=== PATIENT | male | born 1940 | race Two or more races ===

== ENCOUNTER → 2024-07-24 | Outpatient (CLI) | payer MEDICARE, MEDICAID, SELFPAY ==
[2024-07-24 11:08] LABS: Prostate Specific Antigen < 0.10 ng/mL (0-4.00)
== END | disposition home or self-care (01) ==
LOC: COPL 09:01
PROVIDERS: PCP Family Medicine; Referring Provider Urology; Visit Provider Urology
DX: C61 Malignant neoplasm of prostate (principal)
CPT/HCPCS: 36415; 84153

== ENCOUNTER 2024-07-28 10:09 | Day surgery (SDC) | payer MEDICARE, MEDICAID, SELFPAY ==
[2024-07-27 08:00] VITALS: BMI 27.2
[2024-07-27 08:54] LABS: Basophils % (Auto) 1 % (0-2.5); Eosinophils # (Auto) 0.2 Thou/mm3 (0.0-0.5); Eosinophils % (Auto) 4 % (0-10); Hematocrit 35.9 % (41.0-53.0); Hemoglobin 12.1 g/dL (13.5-16.0); Immature Granulocytes % (Auto) 0 % (0-0); Immature Granulocytes Auto 0.02 Thou/mm3 (0.00-0.00); Lymphocytes # (Auto) 1.3 Thou/mm3 (1.0-4.8); Lymphocytes % (Auto) 22 % (10-50); Mean Corpuscular HGB Conc 33.7 g/dl (31.0-37.0); Mean Corpuscular Hemoglobin 32.9 pg (25.0-35.0); Mean Corpuscular Volume 98 fL (80-100); Monocytes # (Auto) 0.4 Thou/mm3 (0.0-0.8); Monocytes % (Auto) 6 % (0-12); Neutrophils # (Auto) 3.8 Thou/mm3 (1.8-7.7); Neutrophils % (Auto) 67 % (37-80); Nucleated Red Blood Cell % 0 /100 WBC (0); Platelet Count 220 Thou/mm3 (140-440); Red Blood Count 3.68 Miln/mm3 (4.50-5.90); White Blood Count 5.7 Thou/mm3 (3.8-10.6)
[2024-07-27 09:11] LABS: Alanine Aminotransferase 14 U/L (10-49); Albumin, Serum 4.5 gm/dL (3.4-4.8); Albumin/Globulin Ratio 1.7 (1.2-2.2); Alkaline Phosphatase 93 U/L (46-116); Anion Gap 6 (7-16); Aspartate Amino Transferase 15 U/L (0-34); BUN/Creatinine Ratio 15 Ratio (12-20); Bilirubin,Total 0.5 mg/dL (0.3-1.2); Blood Urea Nitrogen 17 mg/dL (9-23); Calcium 9.8 mg/dL (8.3-10.6); Calcium (Corrected) 9.8 mg/dL (8.5-10.1); Carbon Dioxide 28.2 mMol/L (20.0-31.0); Chloride 104 mMol/L (98-107); Creatinine (Component) 1.1 mg/dL (0.6-1.3); Estimated Creatinine Clearance 47.9 mL/min (>60); Globulin 2.6 gm/dL (2.3-3.5); Glucose 111 mg/dL (74-106); Osmolality,Calculated 278 (275-295); Potassium 4.4 mMol/L (3.4-5.1); Sodium 138 mMol/L (136-145); Total Protein 7.1 gm/dL (5.7-8.2); eGFR > 60 See Note
[2024-07-27 09:22] LABS: Prothrombin Time 10.7 Seconds (9.0-12.2)
--- NOTE | 2024-07-27 13:30 | SUR.PREOP ---
Cardiac history and records reviewed with Dr Ratliff.
--- NOTE | 2024-07-27 15:08 | SUR.PREOP ---
Pt notified to come in at 1030 tomorrow for surgery.
[2024-07-28] VITALS (8 sets, daily range): BP systolic 120–165; BP diastolic 49–90; PULSE 60–86; RESP 12–14; TEMP 36.2–36.6; O2SAT 97–100; BMI 26.6
[2024-07-28] MEDS: RINGERS LACTATED 1000 ML 1,000 ML 20 ML IV (10:43)
--- NOTE | 2024-07-28 10:53 | CHAP ---
Patient expressed gratitude for prayer before their procedure.
--- NOTE | 2024-07-28 13:37 | SUR.PHASEI ---
1337: Pt. AAOx4, vitals stable, breathing unlabored, no complaint of pain or nausea, dressing to ABD CDI, no active bleed noted, report received from Clinton GOOD and Rhys ALANIZ.
--- NOTE | 2024-07-28 13:41 | ESOP_ITS ---
Date of Procedure 07/28/24 Pre Op Diagnosis Incarcerated incisional hernia Post Op Diagnosis Incarcerated incisional hernia Procedure Laparoscopic assisted repair of incarcerated incisional hernia with mesh Findings Patient was noted to have incarcerated epigastric incisional hernia with incarcerated omentum and falciform ligament Procedure Description Patient brought into the operating room in supine position. After administration of general orotracheal anesthesia, patient's abdomen prepped and draped in standard surgical manner. A 5 mm incision was made in left upper quadrant and Veress needle was inserted, pneumoperitoneum was obtained to 15 mmHg. The Veress needle was removed and a 5 mm trocar was placed. Laparoscopic camera was inserted, under direct visualization a laparoscopic camera a 5 mm trocar placed in left lower quadrant and additional 5 mm trocar placed in right lower quadrant. The abdomen was inspected and patient was noted to have an incarcerated mid epigastric incisional hernia with incarcerated omentum and falciform ligament. The hernia sac was excised with Harmonic scalpel laparoscopically and the omentum was reduced. The incarcerated portion of the falciform ligament was also excised. At this point approximately 3 cm vertical incision was made over his previous scar and dissection was deepened into soft tissue. The large hernia sac was circumferentially dissected off surrounding tissue and excised from surrounding abdominal fascia. The fascia was cleared from overlying tissue. The defect was approximately 3.5 cm in diameter. A 4 x 6 elliptical shape proceed mesh was used to cover the defect. 2 tacking sutures using 0 Ethibond placed the 2 ends of the mesh and the mesh was placed inside the abdominal cavity through the hernia defect. The defect was closed with interrupted sutures using 0 Ethibond. Subcutaneous tissue closed with interrupted sutures of 2-0 Vicryl. The abdomen was once again insufflated. 2 tacking sutures of the 2 ends of the mesh were retrieved through the previously marked abdominal wall site. Sutures were tightened and the mesh was further secured into anterior abdominal wall with secure strap tacking device. The mesh was covering the defect with at least 4 cm circumferential margin. Hemostasis was adequate and satisfactory. Instruments and trocars removed, pneumoperitoneum was evacuated and the incisions closed 4-0 Monocryl subcuticular fashion. Instruments, needles and sponge counts were reported to be correct ?2 patient tolerated the procedure well. Patient was extubated, breathing spontaneously and without difficulty and was transferred to postanesthesia care in stable condition. Anesthesia GETA and local Pathology / specimen Other (Hernia sac) Estimated Blood Loss 5 Condition Stable Disposition PACU Surgeon Diane Oliveira MD Surgical Staff Operation Date: 07/28/24 12:45 Case Staff CORN SHELLER: Armin Manzo RNtransportation planning technician: Sue Rg
[2024-07-28] MEDS: fentaNYL CIT INJ 50 mCg/ML AMP 2ML IV ×3 (13:45→14:08)
[2024-07-28] MEDS: ACETAMINOPHEN IVPB 1,000 MG/100 ML VIAL 250 MG IV (13:47)
--- NOTE | 2024-07-28 14:40 | SUR.PHASEII ---
1440: Pt. AAOx4, vitals stable, breathing unlabored, no complaint of pain or nausea, dressing to ABD CDI, no active bleed noted, pt. tolerated sips of water well, pt. ambulated to wheelchair with steady gait and no assist, no complications. Gave discharge instructions to the pt. and his ride, both verbalized understanding and had no further questions. Pt. left with all personal belongings.
== END 2024-07-28 14:40 | disposition home or self-care (01) ==
PROVIDERS: Anesthesiology; PCP Family Medicine; Referring Provider Surgery; Visit Provider Surgery
PROC: 0WQF4ZZ Repair Abdominal Wall, Percutaneous Endoscopic Approach (ICD-10-PCS; CPT 49594; principal; 2024-07-28 12:30)
DX: K43.0 Incisional hernia with obstruction, without gangrene (principal)
CPT/HCPCS: 49594; 36415; 80053; 85025; 85610; A4217; A4649; C1781; J0131; J0690; J1100; J2250; J2371; J2405; J2704; J3010; J3490; J7120; J1596

== ENCOUNTER 2024-08-08 00:45 | Emergency (ER) | payer MEDICARE, MEDICAID, SELFPAY ==
[2024-08-08 00:45] VITALS: BMI 27.1
[2024-08-08 01:12] VITALS: BP 165/75; PULSE 75; RESP 18; TEMP 36.9; O2SAT 99
--- NOTE | 2024-08-08 01:17 | XR_ITS ---
Examination: CT abdomen with intravenous contrast CT pelvis with intravenous contrast 2-D coronal reconstructions 2-D sagittal reconstructions Date and time of exam:August 08, 2024 0325 hrs. Comparison February 16, 2024 Indications: Abdominal pain, status post hernia repair July 28, 2024 left lower abdominal pain. CTDI: vol (mGy) 14.34 DLP: (mGycm) 643 Technique: Multiple axial sections of the abdomen and pelvis have been obtained. 64 slice high-resolution scanner used. 3 mm axial sections have been obtained, post intravenous injection 60 cc [id number] 70 2-D sagittal, coronal reconstructions obtained. Low dose protocols were performed. One or more of the following dose reduction techniques were used; automated exposure control, adjustment of the mA and/or KV according to patient size, use of iterative reconstruction technique. Findings: Atelectasis in the lower lung zones Elevation right hemidiaphragm 16mm probable cyst posterior right liver with 2 mm indeterminate low-density area in the lower right lobe the liver Absent gallbladder Spleen not enlarged Retrocardiac gastric hernia No pancreatic mass Parapelvic cyst Atrophic right kidney with right renal cortical thinning No hydronephrosis or ureteral calculi Abundant air and stool throughout the colon Normal appendix Diffuse significant wall thickening involving the rectum, axial image 235 Contracted urinary bladder Significant osteopenia with moderate lumbar levoscoliosis Impression: Recommend hepatic sonography to confirm right lobe liver cyst Retrocardiac gastric hernia Atrophic right kidney with right renal cortical thinning, no hydronephrosis Normal appendix Abundant air and stool throughout the colon Significant wall thickening involving the rectum, consider proctitis, clinical correlation advised, consider direct inspection
--- NOTE | 2024-08-08 01:18 | PD.EDRME ---
Rapid Medical Screening Exam RME Arrival date/time: 08/08/24 00:45 83-year-old male with recent hernia repair presents to the emergency department complaining of lower abdominal pain. Chief Complaint: Abdominal Pain Time Seen by Provider: 08/08/24 01:14 Vital signs: Vital Signs Temperature 98.5 F 08/08/24 01:12 Pulse Rate 75 08/08/24 01:12 Respiratory Rate 18 08/08/24 01:12 Blood Pressure 165/75 H 08/08/24 01:12 Pulse Oximetry (%) 99 08/08/24 01:12 Oxygen Delivery Method Room Air 08/08/24 01:12 Vital signs reviewed by provider: Yes
[2024-08-08 01:48] LABS: Basophils # (Auto) 0.1 Thou/mm3 (0.0-0.2); Basophils % (Auto) 1 % (0-2.5); Eosinophils # (Auto) 0.5 Thou/mm3 (0.0-0.5); Eosinophils % (Auto) 6 % (0-10); Hematocrit 35.1 % (41.0-53.0); Hemoglobin 11.8 g/dL (13.5-16.0); Immature Granulocytes % (Auto) 0 % (0-0); Immature Granulocytes Auto 0.04 Thou/mm3 (0.00-0.00); Lymphocytes # (Auto) 1.2 Thou/mm3 (1.0-4.8); Lymphocytes % (Auto) 14 % (10-50); Mean Corpuscular HGB Conc 33.6 g/dl (31.0-37.0); Mean Corpuscular Hemoglobin 32.8 pg (25.0-35.0); Mean Corpuscular Volume 98 fL (80-100); Monocytes # (Auto) 0.5 Thou/mm3 (0.0-0.8); Monocytes % (Auto) 6 % (0-12); Neutrophils # (Auto) 6.6 Thou/mm3 (1.8-7.7); Neutrophils % (Auto) 74 % (37-80); Nucleated Red Blood Cell % 0 /100 WBC (0); Platelet Count 220 Thou/mm3 (140-440); RDW Standard Deviation 47.8 fL (35.1-43.9); White Blood Count 8.9 Thou/mm3 (3.8-10.6)
--- NOTE | 2024-08-08 01:49 | PD.EDABDPN ---
ED Abdominal Pain RME/HPI General Chief Complaint: Abdominal Pain Stated complaint: ABD PAIN AFTER SURGERY DONE 07/28 Time seen by provider: 08/08/24 01:14 Arrival date/time: 08/08/24 00:45 RME / HPI RME / HPI narrative: 08/08/24 00:45 83-year-old male with recent hernia repair presents to the emergency department complaining of lower abdominal pain. ------ This section includes all my notes and documentations, including HPI, PE, and ED course. Donis Rudolph MD HPI: 83yo male with a recent hernia repair on 07/28/[address] Oliveira accompanied by his son presents to the ED for a chief complaint of left-sided abdominal pain x tonight. Patient's son states the patient went to go lie down when going to bed when he felt something rip and started having burning pain. Patient denies any nausea, vomiting, fever, chills or any other associated symptoms. He is passing gas and has a normal appetite. Patient has his follow-up appointment with Dr. Oliveira on 08/18/24. Has been eating normally. No diarrhea. No other complaints reported. ROS: All negative except as documented in HPI. Physical Exam: General: Alert and oriented. No acute distress when remaining still. Eyes: Conjunctivae and lids clear. ENT: No nasal congestion. Neck: Supple. Heart: RRR. Lungs: No respiratory distress. Good air movement. No rhonchi, wheezing, rales. Abdomen: Soft and equivocal tenderness, difficult to localize. Decreased bowel sounds. No rebound or guarding. Legs: No clubbing, cyanosis, edema. Skin: Warm and dry. Neuro: Alert and oriented X 3. I reviewed all diagnostic test results. My review of the CT report is constipation. Blood tests and urine tests unremarkable, except K3.2. At this point, diagnoses include Constipation Treatment here included IV fluid and Zofran and morphine and KCl. Significant improvement noted. Prescribed Senokot S and milk of magnesia and recommended conservative treatment. Based on my best medical judgment, made decision no further evaluation or treatment indicated at this time. Patient understands and agrees to the discharge instructions customized and printed, see below. Discharge instructions from Dr. Rudolph printed for you: --After extensive evaluation, there is no emergency. --You have severe constipation. --Take Senokot S (not plain Senokot, OTC so prescription not needed), four pills, at bedtime as needed. May take a few days but this will help clear out your bowels. Add milk of magnesia as needed. --To help current constipation and prevent future constipation, increase oral fluid because dehydration cause severe constipation. Maintain clear urine. If dark or yellow, increase oral fluid. --And every day, increase fresh fruits and fresh vegetables and physical exercise. --And try to slowly decrease and stop Hooper (your strong pain medication) because this causes severe constipation. --See a private doctor on 03/11/2024 if not completely better. To make sure there is no serious underlying abdominal condition, ask to help you get more care not available here in the ER. Such as EGD or scoping of your stomach, colonoscopy or scoping the colon, and a referral to see a applications coordinator. ?-Seek immediate medical care with worsening or with any concerns. Donis Rudolph MD Related Data Home Medications ?Medication ?Instructions ?Recorded ?Confirmed vibegron 75 mg tablet (Gemtesa) 75 mg PO QDAY 09/28/23 07/28/24 ferrous sulfate 325 mg (65 mg 325 mg PO DAILY 02/17/24 07/28/24 iron) tablet (FeroSul) sucralfate 1 gram tablet 1 g PO BID 02/17/24 07/28/24 aspirin 325 mg tablet 325 mg PO QDAY 07/27/24 07/28/24 lisinopril 5 mg tablet 5 mg PO QDAY 07/27/24 07/28/24 lovastatin 40 mg tablet 40 mg PO DAILY 07/27/24 07/28/24 Previous Rx's ?Medication ?Instructions ?Recorded docusate sodium 100 mg capsule 100 mg PO BID #60 caps 07/28/24 (Colace) hydrocodone 5 mg-acetaminophen 325 1 tab PO Q6H PRN pain (scale score 07/28/24 mg tablet 7-10) #15 tabs ibuprofen 600 mg tablet 600 mg PO Q8H PRN pain (scale 07/28/24 score 4-6) #15 tabs magnesium hydroxide 2,400 mg/10 mL 30 ml PO QDAY PRN constipation #60 08/08/24 oral suspension (Milk Of Magnesia mL Concentrated) sennosides 8.6 mg-docusate sodium 4 tab-cap (4 x 8.6-50 mg) PO 08/08/24 50 mg tablet (Senokot-S) .bedtime PRN constipation #20 tabs Allergies Allergy/AdvReac Type Severity Reaction Status Date / Time Penicillins Allergy Severe Rash Verified 07/28/24 10:34 Review of Systems Review of Systems Systems Reviewed: All systems reviewed, normal except as documented Past Medical History Past Medical History NEUROLOGIC: Negative Neurological Disorders or Seizures CARDIAC: Positive Cardiac Disorders, Coronary Artery Disease, Hypercholesterolemia, Edema (left knee, waiting on surgery) and Hypertension; Negative Congestive Heart Failure RESPIRATORY: Negative Chronic Obstructive Pulmonary Disease (COPD) or Asthma GASTROINTESTINAL: Positive Gastrointestinal Disorders, Ulcer and Gastroesophageal Reflux Disease GENITOURINARY: Positive Prostate Cancer (1998); Negative Genitourinary Disorders or Renal Disease MUSCULOSKELETAL: Negative Musculoskeletal Disorders ENT: Positive Cataracts ENDOCRINE: Negative Endocrine Disorders, Diabetes Mellitus Type 1 or Diabetes Mellitus Type 2 HEMATOLOGIC: Positive Blood Disorders and Anemia; Negative Sickle Cell Disease PSYCHO/SOCIAL: Positive Depression and Anxiety OTHER HISTORY: Positive Hospitalization, Radiation Therapy, Measles, Cancer and Prostate Cancer (1998); Negative Autoimmune Disease, Shingles, Blood Transfusions, Blood Transfusion Reaction or Anesthesia Reactions Family History FAMILY HISTORY: Negative Family Psychiatric Problems, Family Respiratory Disorders, Family Cardiac Disorders, Family Gastrointestinal Problems, Family Cancer, Family Surgery or Family Anesthesia Reaction Surgical History SURGICAL: Positive Coronary Stent, Cardiac Catheterization and Abdominal Surgery Social History SMOKING STATUS: Never smoker ED Exam Narrative Physical exam: As noted in HPI. Course Quality Measures none Orders Category Date Time Status CT Screening NOW Care 08/08/24 01:18 Active Saline [Insert IV] NOW Care 08/08/24 01:50 Active Straight [In and Out Catheter] X1 Care 08/08/24 01:[address] abdomen pelvis w con Stat Exams 08/08/24 01:17 Taken CBC Stat Lab 08/08/24 01:32 Completed CMP [Comprehensive Metabolic Panel] Stat Lab 08/08/24 01:32 Completed Lipase Stat Lab 08/08/24 01:32 Completed Magnesium Stat Lab 08/08/24 01:32 Completed Urinalysis, C/S if Indicated Stat Lab 08/08/24 03:10 Completed KCL 10% Liq UDC 15 ML Med 08/08/24 02:32 Discontinued 40 meq PO X1 ONE Morphine Inj Med 08/08/24 01:50 Discontinued 4 mg IVP X1 ONE Ondansetron Inj [Zofran Inj] Med 08/08/24 01:50 Discontinued 4 mg IV X1 ONE Sodium Chloride 0.9% 1000 ml [Ns] 1,000 ml Med 08/08/24 01:50 Discontinued IV 999 mls/hr Vital Signs Vital signs: Vital Signs Temperature 98.5 F 08/08/24 01:12 Pulse Rate 75 08/08/24 01:12 Respiratory Rate 18 08/08/24 01:12 Blood Pressure 165/75 H 08/08/24 01:12 Pulse Oximetry (%) 99 08/08/24 01:12 Oxygen Delivery Method Room Air 08/08/24 01:12 Abdominal Pain MDM MDM Narrative MDM Narrative:: Scribe Attestation: 08/08/24 Karo Riddle am scribing for and in the presence of Dr. Rudolph. Patient data External records reviewed:: [facility] previous records (Per chart review, patient had a hernia repair done here by Dr. Oliveira on 07/28/24.) Clinical information provided by:: patient and family (patient's son) Social determinants that could affect healthcare access:: none Patient has the following chronic illnesses:: CAD, HTN, GERD, anemia, recent abdominal hernia surgery How is presenting disease/condition affected by chronic disease/condition?: exacerbated by Evaluation data The following diagnostics were reviewed and interpreted by me:: lab results and radiology exam(s) Lab and/or radiology exams considered but not ordered:: none Interpretation Summary: Constipation Medications / Prescriptions Medications or Prescriptions considered but not ordered:: none Medication administrations:: Medication Administration History Discontinued Medications Sodium Chloride (Ns) 1,000 mls @ 999 mls/hr IV .Q1H1M ONE Stop: 08/08/24 02:50 Last Admin: 08/08/24 02:41 Dose: 999 mls/hr Documented By: MK Morphine Sulfate (Morphine Sulf Inj 10 Mg/Ml Vial) 4 mg IVP X1 ONE Stop: 08/08/24 01:51 Last Admin: 08/08/24 04:07 Dose: Not Given Documented By: ANTHONY Non-Admin Reason: Change of Condition Ondansetron HCl (Ondansetron Inj 2 Mg/Ml Inj 2 Ml) 4 mg IV X1 ONE; Protocol Stop: 08/08/24 01:51 Last Admin: 08/08/24 02:41 Dose: 4 mg Documented By: MK Potassium Chloride (Potassium Chloride 10% 20 Meq/15 Ml Udc) 40 meq PO X1 ONE Stop: 08/08/24 02:33 Last Admin: 08/08/24 02:41 Dose: 40 meq Documented By: EE Sodium Chloride, Morphine, Zofran, Potassium Chloride Consultations Consultation(s) initiated? (list below): No Diagnosis Differential diagnosis abdominal pain: acute appendicitis, calculus of kidney, constipation, diverticulitis, gastroenteritis, pancreatitis and small bowel obstruction Most likely diagnosis given after review of the tests above:: Constipation Admission Indicated Admission indicated?: not indicated Explain why admission is indicated or not indicated:: Admission criteria not met Admission Request Was there a request for admission?: No Disposition Plan Disposition Plan: Discharge Discharge Attestation Discharge Attestation: The patient and all family members were given an opportunity to ask questions and understood the discharge instructions. Discharge instructions specifically effects, indications for sooner follow up or return to the emergency department, and the expected course of current diagnosis. Patient condition: Stable Discharge Plan Plan Patient Disposition: HOME (Self Care) Prescriptions/Referrals Prescriptions/Med Rec: New sennosides-docusate sodium [Senokot-S] 8.6-50 mg tablet 4 tab-cap PO .bedtime PRN (Reason: constipation) Qty: 20 0RF magnesium hydroxide [Milk Of Magnesia Concentrated] 2,400 mg/10 mL suspension 30 ml PO QDAY PRN (Reason: constipation) Qty: 60 0RF No Action Gemtesa 75 mg tablet 75 mg PO QDAY sucralfate 1 gram tablet 1 g PO BID ferrous sulfate [FeroSul] 325 mg (65 mg iron) tablet 325 mg PO DAILY Patient Comments: TAKE 1 TABLET BY MOUTH EVERY DAY lisinopril 5 mg Tablet 5 mg PO QDAY aspirin 325 mg Tablet 325 mg PO QDAY Hold Instructions: Resume on 08/02/24. lovastatin 40 mg tablet 40 mg PO DAILY docusate sodium [Colace] 100 mg capsule 100 mg PO BID Qty: 60 0RF hydrocodone-acetaminophen 5-325 mg tablet 1 tab PO Q6H MDD 4 PRN (Reason: pain (scale score 7-10)) Qty: 15 0RF ibuprofen 600 mg tablet 600 mg PO Q8H PRN (Reason: pain (scale score 4-6)) Qty: 15 0RF Referrals: Capo Barone PA-C [Primary Care Provider] - In 1 week Problem List Clinical Impression: Constipation Patient/Caregiver Discharge Instructions Discharge Activity: activity as tolerated Education Materials: ED Constipation (Adult) Additional Instructions: Discharge instructions from Dr. Rudolph printed for you: --After extensive evaluation, there is no emergency.? --You have severe constipation. --Take Senokot S (not plain Senokot, OTC so prescription not needed), four pills, at bedtime as needed.? May take a few days but this will help clear out your bowels. Add milk of magnesia as needed. --To help current constipation and prevent future constipation, increase oral fluid because dehydration cause severe constipation.? Maintain clear urine.? If dark or yellow, increase oral fluid. --And every day, increase fresh fruits and fresh vegetables and physical exercise. --And try to slowly decrease and stop Hooper (your strong pain medication) because this causes severe constipation. --See a private doctor on 03/11/2024 if not completely better. To make sure there is no serious underlying abdominal condition, ask to help you get more care not available here in the ER.? Such as EGD or scoping of your stomach, colonoscopy or scoping the colon, and a referral to see a applications coordinator. ?-Seek immediate medical care with worsening or with any concerns. Print Language: Uzbek Stand Alone Forms: Beth Award Info., Patient Portal Info Letter
[2024-08-08 02:20] LABS: Alanine Aminotransferase 11 U/L (10-49); Albumin, Serum 4.3 gm/dL (3.4-4.8); Albumin/Globulin Ratio 1.7 (1.2-2.2); Alkaline Phosphatase 88 U/L (46-116); Anion Gap 7 (7-16); Aspartate Amino Transferase 16 U/L (0-34); BUN/Creatinine Ratio 14 Ratio (12-20); Bilirubin,Total 0.3 mg/dL (0.3-1.2); Blood Urea Nitrogen 15 mg/dL (9-23); Carbon Dioxide 25.8 mMol/L (20.0-31.0); Chloride 104 mMol/L (98-107); Creatinine (Component) 1.1 mg/dL (0.6-1.3); Estimated Creatinine Clearance 47.8 mL/min (>60); Globulin 2.5 gm/dL (2.3-3.5); Glucose 134 mg/dL (74-106); Lipase 34 U/L (12-53); Osmolality,Calculated 276 (275-295); Potassium 3.2 mMol/L (3.4-5.1); Sodium 137 mMol/L (136-145); Total Protein 6.8 gm/dL (5.7-8.2); eGFR > 60 See Note
[2024-08-08 02:33] LABS: Magnesium 2.1 mg/dL (1.6-2.6)
[2024-08-08] MEDS: SODIUM CHLORIDE 0.9% 1000 ML 1,000 ML 999 ML IV (02:41)
[2024-08-08] MEDS: POTASSIUM CHLORIDE 10% 20 MEQ/15 ML UDC 40 MEQ PO (02:41)
[2024-08-08] MEDS: ONDANSETRON INJ 2 MG/ML INJ 2 ML 4 MG IV (02:41)
[2024-08-08 03:24] LABS: Collection Type, Urine Clean Catch
[2024-08-08 03:27] LABS: Bilirubin,Urine Negative (Negative); Blood,Urine Negative (Negative); Clarity,Urine Clear (Clear/Hazy); Color,Urine Yellow (Lt Yel-Yel); Culture Indicated,Urine Not Indicated; Glucose, Urine Negative (Negative); Ketones,Urine Trace (Negative); Leukocyte Esterase,Urine Negative (Negative); Nitrite,Urine Negative (Negative); Protein,Urine 1+ (Neg - Trace); RBC,Urine 1 /hpf (0-3); Specific Gravity,Urine 1.032 (1.001-1.035); Squamous Epithelial Cell,Urine < 1 /hpf (0-5); WBC,Urine 1 /hpf (0-5)
--- NOTE | 2024-08-08 04:28 | PRELIM_ITS ---
CT scan of the abdomen and pelvis with intravenous contrast (axial sections with sagittal and coronal reformats); dated August 08, 2024 at 0324 hoursClinical History: Abdominal pain, recent hernia rep air.Comparison: Ultrasound of February 17, 2024.Findings:Bilateral lower lobes atelectasis.Dilated left at rium.The pancreas, spleen, kidneys and adrenals are unremarkable.S/p cholecystectomy.No biliary duct dilatation.Hypodense lesion in segment 7 of the liver measures 1.7 cm. Subcentimeter hypodensity in t he left liver lobe, too small to be characterized.No evidence of bowel obstruction. The appendix is w ithin normal limits.There is no mesenteric or retroperitoneal adenopathy.The urinary bladder is unrem arkable. There is no free fluid or free air.The osseous structures are unremarkable.Fecal loading.Imp ression:Fecal loading.Hypodense liver lesion, consider correlation with MRI for characterization. Rep ort Electronically Signed By: Matti Hager 08/08/2024 4:27:46 AM [EST]
[2024-08-08 05:07] VITALS: BP 140/83; PULSE 65; RESP 16; TEMP 36.9; O2SAT 98
== END 2024-08-08 05:07 | disposition home or self-care (01) ==
PROVIDERS: Emergency Provider Emergency Medicine; PCP Family Medicine
DX: K59.00 Constipation, unspecified (principal)
CPT/HCPCS: 36415; 74177; 80053; 81001; 83690; 83735; 85025; 96361; 96374; 99285; A4649; J2405; J7030; Q9967; A9270

== ENCOUNTER 2024-08-29 09:42 | Inpatient (IN) | payer MEDICARE, MEDICAID, SELFPAY ==
[2024-08-29 09:42] VITALS: BMI 26.6
[2024-08-29 10:22] VITALS: BP 131/66; PULSE 75; RESP 18; TEMP 37.1; O2SAT 97; BMI 27.8
--- NOTE | 2024-08-29 10:29 | XR_ITS ---
Examination: CT abdomen and pelvis without contrast. Coronal 3-D reconstructions. Sagittal 2-D reconstructions. Date and time of exam:August 29, 2024 1036 hours Comparison August 08, 2024 INDICATIONS: Abdominal pain constipation difficulty urinating today CTDI: vol (mGy): 6.99 DLP: (mGycm): 450 Technique: Axial images of the abdomen have been obtained, 3 mm slice thickness Intravenous contrast material has not been administered. Low dose protocols were performed. One or more of the following dose reduction techniques were used; automated exposure control, adjustment of the mA and/or KV according to patient size, use of iterative reconstruction technique. Findings: Atelectasis in both lower lung zones Severely distended colon which extends beneath both hemidiaphragms 14 mm right lobe liver cyst Spleen is not enlarged Absent gallbladder No pancreatic or adrenal mass Multiple parapelvic cysts No hydronephrosis renal or ureteral calculi Aorta normal size Normal appendix No diverticulitis Diffuse rectal wall thickening Contracted urinary bladder No significant prostate tissue Prominent osteopenia Significant disc narrowing L4-L5, L5-S1 Moderate narrowing hip joints IMPRESSION: Severely distended colon, toxic megacolon appearance, clinical correlation advised Normal appendix Diffuse prominent rectal wall thickening, differential would include proctitis, rectal tumor not excluded, recommend direct inspection
--- NOTE | 2024-08-29 10:29 | PD.EDRME ---
Rapid Medical Screening Exam RME Arrival date/time: 08/29/24 09:42 83-year-old male presents emergency department complaint of lower abdominal pain patient with history of constipation patient was evaluated in the clinic today and referred to the ER for further evaluation Chief Complaint: Abdominal Pain Time Seen by Provider: 08/29/24 09:50 Vital signs: Vital Signs Temperature 98.7 F 08/29/24 10:22 Pulse Rate 75 08/29/24 10:22 Respiratory Rate 18 08/29/24 10:22 Blood Pressure 131/66 H 08/29/24 10:22 Pulse Oximetry (%) 97 08/29/24 10:22 Oxygen Delivery Method Room Air 08/29/24 10:22
[2024-08-29 11:06] LABS: Basophils % (Auto) 1 % (0-2.5); Eosinophils % (Auto) 1 % (0-10); Hematocrit 36.6 % (41.0-53.0); Hemoglobin 12.4 g/dL (13.5-16.0); Immature Granulocytes % (Auto) 0 % (0-0); Immature Granulocytes Auto 0.01 Thou/mm3 (0.00-0.00); Lymphocytes # (Auto) 0.5 Thou/mm3 (1.0-4.8); Lymphocytes % (Auto) 16 % (10-50); Mean Corpuscular HGB Conc 33.9 g/dl (31.0-37.0); Mean Corpuscular Hemoglobin 32.8 pg (25.0-35.0); Mean Corpuscular Volume 97 fL (80-100); Monocytes # (Auto) 0.4 Thou/mm3 (0.0-0.8); Monocytes % (Auto) 12 % (0-12); Neutrophils # (Auto) 2.4 Thou/mm3 (1.8-7.7); Neutrophils % (Auto) 71 % (37-80); Nucleated Red Blood Cell % 0 /100 WBC (0); Platelet Count 176 Thou/mm3 (140-440); RDW Standard Deviation 47.8 fL (35.1-43.9); Red Blood Count 3.78 Miln/mm3 (4.50-5.90); White Blood Count 3.3 Thou/mm3 (3.8-10.6)
[2024-08-29 11:30] LABS: Alanine Aminotransferase 15 U/L (10-49); Albumin, Serum 4.4 gm/dL (3.4-4.8); Albumin/Globulin Ratio 1.8 (1.2-2.2); Alkaline Phosphatase 64 U/L (46-116); Anion Gap 10 (7-16); Aspartate Amino Transferase 16 U/L (0-34); BUN/Creatinine Ratio 17 Ratio (12-20); Bilirubin,Total 0.7 mg/dL (0.3-1.2); Blood Urea Nitrogen 17 mg/dL (9-23); Calcium 9.4 mg/dL (8.3-10.6); Calcium (Corrected) 9.4 mg/dL (8.5-10.1); Carbon Dioxide 26.4 mMol/L (20.0-31.0); Chloride 102 mMol/L (98-107); Estimated Creatinine Clearance 53.2 mL/min (>60); Globulin 2.4 gm/dL (2.3-3.5); Glucose 138 mg/dL (74-106); Lipase 24 U/L (12-53); Osmolality,Calculated 279 (275-295); Potassium 2.9 mMol/L (3.4-5.1); Sodium 138 mMol/L (136-145); Total Protein 6.8 gm/dL (5.7-8.2); eGFR > 60 See Note
[2024-08-29 11:34] LABS: Collection Type, Urine Clean Catch
[2024-08-29 11:51] LABS: Bilirubin,Urine 1+ (Negative); Blood,Urine Trace (Negative); Clarity,Urine Clear (Clear/Hazy); Color,Urine Yellow (Lt Yel-Yel); Culture Indicated,Urine Not Indicated; Glucose, Urine Trace (Negative); Hyaline Casts,Urine < 1 /hpf (0-1); Ketones,Urine Trace (Negative); Leukocyte Esterase,Urine Negative (Negative); Nitrite,Urine Negative (Negative); Protein,Urine 2+ (Neg - Trace); RBC,Urine 4 /hpf (0-3); Specific Gravity,Urine 1.044 (1.001-1.035); Squamous Epithelial Cell,Urine 1 /hpf (0-5); WBC,Urine 4 /hpf (0-5)
--- NOTE | 2024-08-29 13:59 | EDNOTE_ITS ---
<Statement entered by Joyce Luu MD - 09/09/24 18:12> As co-signing physician, I was present and available for consult prn. I concur with the plan and care as documented by the midlevel provider. ED General RME/HPI General Chief complaint: Abdominal Pain Stated complaint: ABD. PAIN AND CONSTIPATION Time Seen by Provider: 08/29/24 09:50 Arrival date/time: 08/29/24 09:42 CC: Constipation with lower abdominal pain HPI ongoing for the past several weeks. Patient states he had a hernia surgery by Dr. Oliveira on July 28. The patient denies fever RME / HPI RME / HPI narrative: 08/29/24 09:42 83-year-old male presents emergency department complaint of lower abdominal pain patient with history of constipation patient was evaluated in the clinic today and referred to the ER for further evaluation Related Data Home Medications ?Medication ?Instructions ?Recorded ?Confirmed ferrous sulfate 325 mg (65 mg 325 mg PO DAILY 02/17/24 08/29/24 iron) tablet (FeroSul) sucralfate 1 gram tablet 1 g PO BID 02/17/24 08/29/24 aspirin 325 mg tablet 325 mg PO QDAY 07/27/24 08/29/24 lisinopril 5 mg tablet 5 mg PO QDAY 07/27/24 08/29/24 Previous Rx's ?Medication ?Instructions ?Recorded docusate sodium 100 mg capsule 100 mg PO BID #60 caps 07/28/24 (Colace) hydrocodone 5 mg-acetaminophen 325 1 tab PO Q6H PRN pain (scale score 07/28/24 mg tablet 7-10) #15 tabs ibuprofen 600 mg tablet 600 mg PO Q8H PRN pain (scale 07/28/24 score 4-6) #15 tabs vancomycin 125 mg capsule 125 mg PO QID #28 caps 09/03/24 Allergies Allergy/AdvReac Type Severity Reaction Status Date / Time Penicillins Allergy Severe Rash Verified 08/29/24 09:44 Review of Systems Review of Systems Narrative Review of Systems: GEN: No fever, no chills, no weight loss EYES: No discharge, no visual changes, no pain HEENT: No ear pain, no congestion, no sore throat PULM: No shortness of breath, no cough, no congestion CV: No chest pain, no dyspnea on exertion, no palpitations GI: No nausea, no vomiting, no diarrhea, + pain, no constipation : No frequency, no urgency, no dysuria MUSC/SKEL: No joint pain, no back pain SKIN: No rash PSYCH: No hallucinations, no depression HEME/LYMPH: No easy bleeding or bruising tendencies NEURO: No weakness, no headache Past Medical History Past Medical History NEUROLOGIC: Negative Neurological Disorders or Seizures CARDIAC: Positive Cardiac Disorders, Coronary Artery Disease, Hypercholesterolemia, Edema and Hypertension; Negative Congestive Heart Failure RESPIRATORY: Negative Chronic Obstructive Pulmonary Disease (COPD) or Asthma GASTROINTESTINAL: Positive Gastrointestinal Disorders, Ulcer and Gastroesophageal Reflux Disease GENITOURINARY: Positive Prostate Cancer; Negative Genitourinary Disorders or Renal Disease MUSCULOSKELETAL: Negative Musculoskeletal Disorders ENT: Positive Cataracts ENDOCRINE: Negative Endocrine Disorders, Diabetes Mellitus Type 1 or Diabetes Mellitus Type 2 HEMATOLOGIC: Positive Blood Disorders and Anemia; Negative Sickle Cell Disease PSYCHO/SOCIAL: Positive Depression and Anxiety OTHER HISTORY: Positive Hospitalization, Radiation Therapy, Measles, Cancer and Prostate Cancer; Negative Autoimmune Disease, Shingles, Blood Transfusions, Blood Transfusion Reaction or Anesthesia Reactions Family History FAMILY HISTORY: Negative Family Psychiatric Problems, Family Respiratory Disorders, Family Cardiac Disorders, Family Gastrointestinal Problems, Family Cancer, Family Surgery or Family Anesthesia Reaction Surgical History SURGICAL: Positive Coronary Stent, Cardiac Catheterization and Abdominal Surgery Social History SMOKING STATUS: Never smoker ED Exam Narrative Physical exam: [General: Obese not in cot no acute distress Head normocephalic HEENT: Within acceptable limits Neck is supple nontender Chest equal chest rise nontender to palpation Respiratory: Clear to auscultation no wheezes crackles or rubs CV: Rate rhythm is regular no murmurs rubs or clicks Abdomen is distended firm soft nontender surgical repair sites clean dry and intact. Back: No CVA tenderness no spinous process tenderness from cervical spine thoracic and lumbar spine Skin: Intact no petechiae rash induration ulceration or crepitus Extremities: Moving all extremity against resistance cap refill less than 2 seconds neurosensory intact. No lower extremity edema. Neuro: Awake alert oriented x3 Glascow coma 15 no focal deficits] Course Course Course Narrative: Patient's case discussed with Dr. Reynolds once a surgical called at consult and a rectal tube. Quality Measures none Orders Category Date Time Status Insert Rectal Tube QSHIFT Care 08/29/24 14:32 Completed Consult to Gastroenterology Stat Cons 08/29/24 14:[address] abdomen pelvis wo con Stat Exams 08/29/24 10:29 Completed CBC Stat Lab 08/29/24 10:56 Completed Comprehensive Metabolic Panel Stat Lab 08/29/24 10:56 Completed Lipase Stat Lab 08/29/24 10:56 Completed UA, C/S IF [Urinalysis, C/S if Indicated] Stat Lab 08/29/24 11:30 Completed Sodium Chloride 0.9% 1000 ml [Ns] 1,000 ml Med 08/29/24 14:13 Discontinued IV 100 mls/hr Vital Signs Vital signs: Vital Signs Temperature 98.7 F 08/29/24 10:22 Pulse Rate 75 08/29/24 10:22 Respiratory Rate 18 08/29/24 10:22 Blood Pressure 131/66 H 08/29/24 10:22 Pulse Oximetry (%) 97 08/29/24 10:22 Oxygen Delivery Method Room Air 08/29/24 10:22 [facility] Patient data External records reviewed:: [facility] previous records Clinical information provided by:: patient Social determinants that could affect healthcare access:: none Patient has the following chronic illnesses:: Recent hernia surgery How is presenting disease/condition affected by chronic disease/condition?: u neffected by Evaluation data The following diagnostics were reviewed and interpreted by me:: lab results and radiology exam(s) Lab and/or radiology exams considered but not ordered:: CBC shows neutropenia at 3.7 H&H of 13 and 36 respectively no thrombocytopenia CMP shows a potassium of 2.0 no other significant electrolyte imbalances renal impairment transaminitis or T. bili elevation. Urine shows a 4+ blood. Interpretation Summary: Abdominal pain Medications Medications considered but not ordered:: None Medication administrations:: Medication Administration History Acetaminophen (Acetaminophen 325 Mg Tablet) 650 mg PO Q6H PRN PRN Reason: PAIN(1-3) OR FEVER > 101 Stop: 09/28/24 15:47 Docusate Sodium (Docusate Sod 100 Mg Capsule) 100 mg PO QDAY [facility]; Protocol Stop: 10/01/24 14:59 Last Admin: 09/03/24 08:59 Dose: 100 mg Documented By: Admin: 09/02/24 09:17 Dose: 100 mg Documented By: Admin: 09/01/24 16:14 Dose: 100 mg Documented By: JOSEFINA Metronidazole (Flagyl 500 Mg Iv) 500 mg in 100 mls @ 200 mls/hr IV Q8HR KADIE Stop: 09/05/24 22:42 Last Admin: 09/03/24 05:38 Dose: 200 mls/hr Documented By: Infusion: 09/02/24 21:41 Dose: Infused Documented By: Admin: 09/02/24 21:11 Dose: 200 mls/hr Documented By: Infusion: 09/02/24 13:39 Dose: Infused Documented By: Admin: 09/02/24 13:09 Dose: 200 mls/hr Documented By: Infusion: 09/02/24 05:54 Dose: Infused Documented By: Admin: 09/02/24 05:24 Dose: 200 mls/hr Documented By: Infusion: 09/01/24 21:43 Dose: Infused Documented By: Admin: 09/01/24 21:13 Dose: 200 mls/hr Documented By: Infusion: 09/01/24 13:35 Dose: Infused Documented By: Admin: 09/01/24 13:05 Dose: 200 mls/hr Documented By: Infusion: 09/01/24 06:02 Dose: Infused Documented By: Admin: 09/01/24 05:32 Dose: 200 mls/hr Documented By: Infusion: 08/31/24 22:40 Dose: Infused Documented By: Admin: 08/31/24 22:10 Dose: 200 mls/hr Documented By: Infusion: 08/31/24 14:40 Dose: Infused Documented By: Admin: 08/31/24 14:10 Dose: 200 mls/hr Documented By: Infusion: 08/31/24 06:12 Dose: Infused Documented By: Admin: 08/31/24 05:42 Dose: 200 mls/hr Documented By: Infusion: 08/30/24 22:05 Dose: Infused Documented By: Admin: 08/30/24 21:35 Dose: 200 mls/hr Documented By: Infusion: 08/30/24 15:56 Dose: Infused Documented By: Admin: 08/30/24 15:26 Dose: 200 mls/hr Documented By: Infusion: 08/30/24 06:31 Dose: Infused Documented By: Admin: 08/30/24 06:01 Dose: 200 mls/hr Documented By: Infusion: 08/29/24 23:29 Dose: Infused Documented By: Admin: 08/29/24 22:59 Dose: 200 mls/hr Documented By: NERY Lisinopril (Lisinopril 2.5 Mg Tablet) 5 mg PO QDAY [facility] Stop: 09/29/24 08:59 Last Admin: 09/03/24 08:59 Dose: 5 mg Documented By: Admin: 09/02/24 09:17 Dose: 5 mg Documented By: Admin: 09/01/24 10:20 Dose: 5 mg Documented By: Admin: 08/31/24 08:29 Dose: 5 mg Documented By: Admin: 08/30/24 09:45 Dose: 5 mg Documented By: SIENA Morphine Sulfate (Morphine Sulf Inj 10 Mg/Ml Vial) 4 mg IVP Q6HR PRN PRN Reason: PAIN SCALE 7-10 (Severe Stop: 09/04/24 10:33 Last Admin: 08/30/24 17:16 Dose: 4 mg Documented By: SIENA Ondansetron HCl (Ondansetron Inj 2 Mg/Ml Inj 2 Ml) 4 mg IV Q6H PRN; Protocol PRN Reason: NAUSEA OR VOMITING Stop: 09/28/24 15:47 Pantoprazole Sodium (Pantoprazole Inj 40 Mg Vial) 40 mg IVP QDAY [facility] Stop: 09/28/24 16:14 Last Admin: 09/03/24 08:59 Dose: 40 mg Documented By: Admin: 09/02/24 09:18 Dose: 40 mg Documented By: Admin: 09/01/24 10:19 Dose: 40 mg Documented By: Admin: 08/31/24 08:30 Dose: 40 mg Documented By: Admin: 08/30/24 09:42 Dose: 40 mg Documented By: Admin: 08/29/24 16:42 Dose: 40 mg Documented By: MADELEINE Vancomycin HCl (Vancomycin Oral Solution 25 Mg/Ml) 500 mg PO QID [facility] Stop: 09/07/24 11:59 Last Admin: 09/03/24 11:53 Dose: 500 mg Documented By: Admin: 09/03/24 06:28 Dose: 500 mg Documented By: Admin: 09/02/24 21:12 Dose: 500 mg Documented By: Admin: 09/02/24 16:48 Dose: 500 mg Documented By: Admin: 09/02/24 12:54 Dose: 500 mg Documented By: Admin: 09/02/24 06:28 Dose: 500 mg Documented By: Admin: 09/01/24 21:12 Dose: 500 mg Documented By: Admin: 09/01/24 17:35 Dose: 500 mg Documented By: Admin: 09/01/24 12:55 Dose: 500 mg Documented By: Admin: 09/01/24 05:36 Dose: 500 mg Documented By: Admin: 08/31/24 21:56 Dose: Not Given Documented By: AAA Non-Admin Reason: NPO Admin: 08/31/24 17:35 Dose: 500 mg Documented By: Admin: 08/31/24 12:27 Dose: 500 mg Documented By: JOSEFINA Discontinued Medications Acetaminophen (Acetaminophen 325 Mg Tablet) 650 mg PO Q6H PRN PRN Reason: PAIN OR FEVER > 101 Stop: 09/28/24 15:47 Last Admin: 08/29/24 21:21 Dose: 650 mg Documented By: NERY Diphenhydramine HCl (Diphenhydramine Inj 50 Mg/Ml Vial) 25 mg IV [id number] PRN PRN Reason: MODERATE SEDATION Fentanyl Citrate (Fentanyl Cit Inj 50 Mcg/Ml Amp 2ml) 50 mcg IV Q2M PRN PRN Reason: MODERATE SEDATION Fentanyl Citrate (Fentanyl Cit Inj 50 Mcg/Ml Amp 2ml) Confirm Administered Dose 100 mcg .ROUTE .STK-MED ONE Stop: 08/31/24 22:26 Fidaxomicin (Fidaxomicin 200 Mg Tablet (Non-Formulary)) 200 mg PO BID [facility] Stop: 09/07/24 08:59 Sodium Chloride (Ns) 1,000 mls @ 100 mls/hr IV .Q10H KADIE Stop: 09/28/24 14:12 Last Admin: 08/29/24 14:38 Dose: 100 mls/hr Documented By: MADELEINE Lactated Ringer's (Lactated Ringers) 1,000 mls @ 150 mls/hr IV .Q6H40M [facility] Stop: 09/28/24 16:14 Potassium Chloride 30 meq/ (Sodium Chloride) 1,015 mls @ 120 mls/hr IV .Q8H28M [facility] Stop: 08/30/24 09:10 Last Admin: 08/30/24 04:30 Dose: 120 mls/hr Documented By: Infusion: 08/30/24 01:10 Dose: Infused Documented By: Admin: 08/29/24 16:42 Dose: 120 mls/hr Documented By: MADELEINE Ceftriaxone Sodium/Dextrose (Rocephin/D5w 1gm Iv Premix) 50 mls @ 100 mls/hr IV QDAY KADIE Stop: 09/06/24 08:59 Last Infusion: 08/30/24 10:15 Dose: Infused Documented By: Admin: 08/30/24 09:45 Dose: 100 mls/hr Documented By: SIENA Ceftriaxone Sodium/Dextrose (Rocephin/D5w 1gm Iv Premix) 50 mls @ 100 mls/hr IV X1 ONE Stop: 08/29/24 23:29 Last Admin: 08/29/24 23:27 Dose: 100 mls/hr Documented By: NERY Potassium Chloride/Dextrose/Sod Cl (Kcl 20 Meq/L In D5-1/2ns) 20 meq in 1,000 mls @ 75 mls/hr IV .[id number] [facility] Stop: 09/30/24 09:29 Last Admin: 09/02/24 09:25 Dose: Not Given Documented By: JUDY Non-Admin Reason: Discontinued Admin: 09/01/24 18:43 Dose: 75 mls/hr Documented By: Infusion: 09/01/24 18:43 Dose: Infused Documented By: Admin: 09/01/24 05:24 Dose: 75 mls/hr Documented By: Infusion: 09/01/24 00:06 Dose: Infused Documented By: Admin: 08/31/24 10:46 Dose: 75 mls/hr Documented By: JOSEFINA Lisinopril (Lisinopril 2.5 Mg Tablet) 5 mg PO X1 ONE Stop: 09/03/24 11:20 Last Admin: 09/03/24 11:52 Dose: 5 mg Documented By: JUDY Meperidine HCl (Meperidine Inj 50 Mg/Ml Vial) 25 mg IV Q2M PRN PRN Reason: MODERATE SEDATION Midazolam HCl (Midazolam Inj 1 Mg/Ml Vial 2 Ml) 2 mg IV Q2M PRN PRN Reason: Moderate Sedation Midazolam HCl (Midazolam Inj 1 Mg/Ml Vial 2 Ml) Confirm Administered Dose 4 mg .ROUTE .STK-MED ONE Stop: 08/31/24 22:26 Polyethylene Glycol (Polyethylene Glycol 17 Gm Packet) 17 gm PO QDAY KADIE Stop: 10/01/24 14:59 Last Admin: 09/02/24 09:25 Dose: Not Given Documented By: JUDY Non-Admin Reason: Discontinued Admin: 09/01/24 16:13 Dose: 17 gm Documented By: KD Polyethylene Glycol/Electrolytes (Na Ty/Nahco3/Tomas/Peg (Golytely) 4,000 Ml Btl) 4,000 ml PO X1 ONE Stop: 08/30/24 11:19 Last Admin: 08/30/24 13:15 Dose: 4,000 ml Documented By: BF Comments: 4000 ml Potassium Chloride (Potassium Chloride 10% 20 Meq/15 Ml Udc) 40 meq PO X1 ONE Stop: 08/30/24 09:46 Last Admin: 08/30/24 09:46 Dose: 40 meq Documented By: SIENA Potassium Chloride (Potassium Chloride 20 Meq Tabcr) 40 meq PO X1 ONE Stop: 08/31/24 07:35 Last Admin: 08/31/24 08:27 Dose: 40 meq Documented By: JOSEFINA Potassium Chloride (Potassium Chloride 20 Meq Tabcr) 40 meq PO X1 ONE Stop: 08/31/24 12:45 Last Admin: 08/31/24 14:26 Dose: 40 meq Documented By: KD Potassium Chloride (Potassium Chloride 10% 20 Meq/15 Ml Udc) 40 meq PO X1 ONE Stop: 09/02/24 12:49 Last Admin: 09/02/24 13:09 Dose: 40 meq Documented By: JUDY Potassium Chloride (Potassium Chloride 10% 20 Meq/15 Ml Udc) 20 meq PO X1 ONE Stop: 09/02/24 16:01 Last Admin: 09/02/24 16:47 Dose: 20 meq Documented By: JUDY Potassium Chloride (Potassium Chloride 20 Meq Tabcr) 40 meq PO X1 ONE Stop: 09/03/24 08:05 Last Admin: 09/03/24 08:59 Dose: 40 meq Documented By: JUDY Sennosides (Senna Tablet) 2 tab PO BID PRN; Protocol PRN Reason: CONSTIPATION Stop: 09/28/24 15:47 Sennosides (Senna Tablet) 1 tab PO BID KADIE; Protocol Stop: 10/01/24 20:59 Last Admin: 09/02/24 09:25 Dose: Not Given Documented By: CV Non-Admin Reason: Discontinued Admin: 09/01/24 21:14 Dose: Not Given Documented By: Non-Admin Reason: Patient Refused Sucralfate (Sucralfate 1 Gm Tablet) 1 gm PO BID [facility] Stop: 09/29/24 20:59 Last Admin: 09/02/24 09:26 Dose: Not Given Documented By: CV Non-Admin Reason: Discontinued Admin: 09/01/24 21:12 Dose: 1 gm Documented By: Admin: 09/01/24 10:20 Dose: 1 gm Documented By: Admin: 08/31/24 21:55 Dose: Not Given Documented By: AAA Non-Admin Reason: NPO Admin: 08/31/24 08:29 Dose: 1 gm Documented By: Admin: 08/30/24 21:34 Dose: 1 gm Documented By: NERY Vancomycin HCl (Vancomycin 125 Mg Capsule) 500 mg PO QID [facility] Stop: 09/07/24 08:59 Last Admin: 08/31/24 10:46 Dose: 125 mg Documented By: JOSEFINA Comments: Pt unable to swallow the other 3 capsules. aware None Consultations Consultation(s) initiated? (list below): No Diagnosis Differential Diagnosis ED Complaint MDM: Abdominal pain pancreatitis ileus Most likely diagnosis given after review of the tests above:: Abdominal pain Admission Indicated Admission indicated?: indicated Explain why admission is indicated or not indicated:: Further medical management Admission Request Was there a request for admission?: No Disposition Plan Disposition Plan: Admit Medical Decision Making Differential Diagnosis Differential Diagnosis: Abdominal pain pancreatitis ileus Lab Data 09/03/24 04:40 09/03/24 04:40 Labs: Lab Results 08/29/24 08/29/24 Range/Units 10:56 11:30 WBC 3.3 L (3.8-10.6) Thou/mm3 RBC 3.78 L (4.50-5.90) Miln/mm3 Hgb 12.4 L (13.5-16.0) g/dL Hct 36.6 L (41.0-53.0) % MCV 97 (80-100) fL MCH 32.8 (25.0-35.0) pg MCHC 33.9 (31.0-37.0) g/dl RDW Std Deviation 47.8 H (35.1-43.9) fL Plt Count 176 D (140-440) Thou/mm3 Neut % (Auto) 71 (37-80) % Lymph % (Auto) 16 (10-50) % Williamson % (Auto) 12 (0-12) % Eos % (Auto) 1 (0-10) % Baso % (Auto) 1 (0-2.5) % Neut # (Auto) 2.4 (1.8-7.7) Thou/mm3 Lymph # (Auto) 0.5 L (1.0-4.8) Thou/mm3 Williamson # (Auto) 0.4 (0.0-0.8) Thou/mm3 Eos # (Auto) 0.0 (0.0-0.5) Thou/mm3 Baso # (Auto) 0.0 (0.0-0.2) Thou/mm3 Immature Gran # (Auto) 0.01 H (0.00-0.00) Thou/mm3 Absolute Nucleated RBC 0.00 (0.00-0.00) Thou/mm3 Immature Gran % 0 (0-0) % Nucleated RBC % 0 (0) /100 WBC Sodium 138 (136-145) mMol/L Potassium 2.9 L (3.4-5.1) mMol/L Chloride 102 (98-107) mMol/L Carbon Dioxide 26.4 (20.0-31.0) mMol/L Anion Gap 10 (7-16) BUN 17 (9-23) mg/dL Creatinine 1.0 (0.6-1.3) mg/dL Estim Creat Clear Calc 53.2 L (>60) mL/min eGFR > 60 (60 - ) See Note BUN/Creatinine Ratio 17 (12-20) Ratio Glucose 138 H (74-106) mg/dL Calculated Osmolality 279 (275-295) Calcium 9.4 (8.3-10.6) mg/dL Corrected Calcium 9.4 (8.5-10.1) mg/dL Total Bilirubin 0.7 (0.3-1.2) mg/dL AST 16 (0-34) U/L ALT 15 (10-49) U/L Alkaline Phosphatase 64 (46-116) U/L Total Protein 6.8 (5.7-8.2) gm/dL Albumin 4.4 (3.4-4.8) gm/dL Globulin 2.4 (2.3-3.5) gm/dL Albumin/Globulin Ratio 1.8 (1.2-2.2) Lipase 24 (12-53) U/L Ur Collection Type Clean Catch Urine Color Yellow (Lt Yel-Yel) Urine Clarity Clear (Clear/Hazy) Urine pH 6.0 (5.0-7.0) Ur Specific [place] 1.044 H (1.001-1.035) Urine Protein 2+ A (Neg - Trace) Urine Glucose (UA) Trace (Negative) Urine Ketones Trace (Negative) Urine Blood Trace (Negative) Urine Nitrite Negative (Negative) Urine Bilirubin 1+ A (Negative) Urine Urobilinogen (Auto) 3.0 (0.0-1.0) mg/dL Ur Leukocyte Esterase Negative (Negative) Urine RBC 4 H (0-3) /hpf Urine WBC 4 (0-5) /hpf Ur Squamous Epith Cells 1 (0-5) /hpf Urine Bacteria None (None) Hyaline Casts < 1 (0-1) /hpf Ur Culture Indicated? Not Indicated Discharge Plan Plan Patient Disposition: Admit Acute Care w/in Hospital Patient condition on transfer: Stable Problem List Clinical Impression: Abdominal pain PA/FINANCE VICE PRESIDENT Supervising Physician PA/FINANCE VICE PRESIDENT Supervising Physician: Augustine Gore ENP
[2024-08-29] MEDS: SODIUM CHLORIDE 0.9% 1000 ML 1,000 ML 100 ML IV (14:38)
[2024-08-29 15:00] VITALS: BP 154/74; PULSE 78; RESP 17; TEMP 37.1; O2SAT 99
--- NOTE | 2024-08-29 15:19 | PD.RESCONSUL ---
HPI Data of Consult Primary Care Provider: Capo Barone PA-C Consult Narrative History of present illness: Patient is a 82-year-old male with a past medical history of hypertension, hypercholesterolemia, GERD, peptic ulcer disease, anemia, patient is followed by Dr. Horvath and is on aspirin and statin but unsure of the indication, denied having a coronary angiogram. Patient had a recent surgery for hernia repair last month in July, came into the ER complaining of right lower quadrant abdominal pain for the past few days, difficulty passing stools, reported he had 1 bowel movement yesterday, and had some drops of blood after the bowel movement, reported having dark stools over the past 4 days, of note patient is reported taking iron pills for anemia. Denied having any fever, chest pain, shortness of breath. Denied having any diarrhea, physical exam unremarkable for abdominal rigidity or rebound tenderness. CT abdomen pelvis shows severely distended colon with toxic megacolon appearance, as well as diffuse prominent rectal wall thickening, proctitis versus rectal tumor possible. ER consulted chaperon Dr. Reynolds who recommended rectal tube and getting general surgery on board. Reached out to general surgeon Dr Oliveira who said he will Evaluate the patient and give recommendations . Past medical and surgical history: Past medical history hypertension, hypercholesterolemia, GERD, peptic ulcer disease, anemia?on iron pills. Follows Dr. Horvath, is on aspirin and statin but patient is unsure why he sees a ethologist, is on aspirin and statin denied having an angiogram. Patient reported he had a colonoscopy in [place] last year, and he was told That everything was normal. cc:: cc: Past Medical History Past Medical History NEUROLOGIC: Negative Neurological Disorders or Seizures CARDIAC: Positive Cardiac Disorders, Coronary Artery Disease, Hypercholesterolemia, Edema and Hypertension; Negative Congestive Heart Failure RESPIRATORY: Negative Chronic Obstructive Pulmonary Disease (COPD) or Asthma GASTROINTESTINAL: Positive Gastrointestinal Disorders, Ulcer and Gastroesophageal Reflux Disease GENITOURINARY: Positive Prostate Cancer; Negative Genitourinary Disorders or Renal Disease MUSCULOSKELETAL: Negative Musculoskeletal Disorders ENT: Positive Cataracts ENDOCRINE: Negative Endocrine Disorders, Diabetes Mellitus Type 1 or Diabetes Mellitus Type 2 HEMATOLOGIC: Positive Blood Disorders and Anemia; Negative Sickle Cell Disease PSYCHO/SOCIAL: Positive Depression and Anxiety OTHER HISTORY: Positive Hospitalization, Radiation Therapy, Measles, Cancer and Prostate Cancer; Negative Autoimmune Disease, Shingles, Blood Transfusions, Blood Transfusion Reaction or Anesthesia Reactions Family History FAMILY HISTORY: Negative Family Psychiatric Problems, Family Respiratory Disorders, Family Cardiac Disorders, Family Gastrointestinal Problems, Family Cancer, Family Surgery or Family Anesthesia Reaction Surgical History SURGICAL: Positive Coronary Stent, Cardiac Catheterization and Abdominal Surgery Social History SMOKING STATUS: Never smoker Exam Vital Signs Temp Pulse Resp BP Pulse Ox O2 Del Method 98.7 F 75 18 131/66 H 97 Room Air 08/29/24 10:22 08/29/24 10:22 08/29/24 10:22 08/29/24 10:22 08/29/24 10:22 08/29/24 10:22 Results Labs 08/29/24 10:56 08/29/24 10:56 Labs: Short CBC 08/29/24 Range/Units 10:56 WBC 3.3 L (3.8-10.6) Thou/mm3 Hgb 12.4 L (13.5-16.0) g/dL Hct 36.6 L (41.0-53.0) % Plt Count 176 D (140-440) Thou/mm3 BMP 08/29/24 10:56 Sodium 138 Potassium 2.9 L Chloride 102 Carbon Dioxide 26.4 BUN 17 Creatinine 1.0 Glucose 138 H Calcium 9.4 Liver Function 08/29/24 Range/Units 10:56 Total Bilirubin 0.7 (0.3-1.2) mg/dL AST 16 (0-34) U/L ALT 15 (10-49) U/L Alkaline Phosphatase 64 (46-116) U/L Albumin 4.4 (3.4-4.8) gm/dL Urine 08/29/24 Range/Units 11:30 Urine Color Yellow (Lt Yel-Yel) Urine Clarity Clear (Clear/Hazy) Urine pH 6.0 (5.0-7.0) Ur Specific [place] 1.044 H (1.001-1.035) Urine Protein 2+ A (Neg - Trace) Urine Glucose (UA) Trace (Negative) Medications Home Medications and Allergies Home Medications ?Medication ?Instructions ?Recorded ?Confirmed ?Type vibegron 75 mg tablet (Gemtesa) 75 mg PO QDAY 09/28/23 07/28/24 History ferrous sulfate 325 mg (65 mg 325 mg PO DAILY 02/17/24 07/28/24 History iron) tablet (FeroSul) sucralfate 1 gram tablet 1 g PO BID 02/17/24 07/28/24 History aspirin 325 mg tablet 325 mg PO QDAY 07/27/24 07/28/24 History lisinopril 5 mg tablet 5 mg PO QDAY 07/27/24 07/28/24 History lovastatin 40 mg tablet 40 mg PO DAILY 07/27/24 07/28/24 History Allergies Allergy/AdvReac Type Severity Reaction Status Date / Time Penicillins Allergy Severe Rash Verified 08/29/24 09:44 Visit Medications Sodium Chloride (Ns) 1,000 mls @ 100 mls/hr IV .Q10H KADIE Stop: 09/28/24 14:12 Last Admin: 08/29/24 14:38 Dose: 100 mls/hr
--- NOTE | 2024-08-29 15:26 | PD.ADDHP ---
Addendum History & Physical Addendum Date of report being addended: 08/29/24 Narrative: Attending's attestation: I reviewed labs, imaging, EKG, home medications and prior available records. Face to face evaluation was performed by me. I have personally examined the patient and discussed assessment and plan with the IM team. I reviewed the resident note and agree with the plan with exceptions as below. Megacolon Lower GI bleed Leukopenia Hypokalemia Primary hypertension Plan: IV hydration Monitor H&H Monitor WBC Replete potassium and follow-up BMP Consult GI given the reported lower GI bleed Consult general surgery given the recent hernia repair and megacolon picture
--- NOTE | 2024-08-29 15:37 | PD.RESHP ---
Documentation for date of: 08/29/24 HPI History of Present Illness History of present illness: Patient is a 82-year-old male with a past medical history of hypertension, hypercholesterolemia, GERD, peptic ulcer disease, anemia, patient is followed by Dr. Horvath and is on aspirin and statin but unsure of the indication, denied having a coronary angiogram. Patient had a recent surgery for hernia repair last month in July, came into the ER complaining of right lower quadrant abdominal pain for the past few days, difficulty passing stools, reported he had 1 bowel movement yesterday, and had some drops of blood after the bowel movement, reported having dark stools over the past 4 days, of note patient is reported taking iron pills for anemia. Denied having any fever, chest pain, shortness of breath. Denied having any diarrhea, physical exam unremarkable for abdominal rigidity or rebound tenderness. CT abdomen pelvis shows severely distended colon with toxic megacolon appearance, as well as diffuse prominent rectal wall thickening, proctitis versus rectal tumor possible. ER consulted oscillograph technician Dr. Reynolds who recommended rectal tube and getting general surgery on board. Reached out to general surgeon Dr Oliveira who said he will Evaluate the patient and give recommendations . Past medical and surgical history: Past medical history hypertension, hypercholesterolemia, GERD, peptic ulcer disease, anemia?on iron pills. Follows Dr. Horvath, is on aspirin and statin but patient is unsure why he sees a aerial gunner, is on aspirin and statin denied having an angiogram. Patient reported he had a colonoscopy in [place] last year, and he was told That everything was normal. History of prostate carcinoma status post robotic surgery in 2019. Home medications: Patient takes ferrous sulfate, Gemtesa for overactive bladder, docusate, ibuprofen, lisinopril 5 mg, Review of Systems Review of Systems Narrative Review of Systems: General: Denies fevers or chills HEENT: Denies congestion or sore throat Heart: Denies chest pain or palpitations Lungs: Denies shortness of breath or cough Abdomen: Reports constipation, bright red bleeding per rectum, dark stools but also takes iron pills. Genitourinary: Denies frequency, urgency, dysuria, or hematuria Musculoskeletal: Denies joint pain, denies muscular pain Neurology: Denies any numbness, tingling Review of systems otherwise negative except what is mentioned above. Past Medical History Past Medical History NEUROLOGIC: Negative Neurological Disorders or Seizures CARDIAC: Positive Cardiac Disorders, Coronary Artery Disease, Hypercholesterolemia, Edema and Hypertension; Negative Congestive Heart Failure RESPIRATORY: Negative Chronic Obstructive Pulmonary Disease (COPD) or Asthma GASTROINTESTINAL: Positive Gastrointestinal Disorders, Ulcer and Gastroesophageal Reflux Disease GENITOURINARY: Positive Prostate Cancer; Negative Genitourinary Disorders or Renal Disease MUSCULOSKELETAL: Negative Musculoskeletal Disorders ENT: Positive Cataracts ENDOCRINE: Negative Endocrine Disorders, Diabetes Mellitus Type 1 or Diabetes Mellitus Type 2 HEMATOLOGIC: Positive Blood Disorders and Anemia; Negative Sickle Cell Disease PSYCHO/SOCIAL: Positive Depression and Anxiety OTHER HISTORY: Positive Hospitalization, Radiation Therapy, Measles, Cancer and Prostate Cancer; Negative Autoimmune Disease, Shingles, Blood Transfusions, Blood Transfusion Reaction or Anesthesia Reactions Family History FAMILY HISTORY: Negative Family Psychiatric Problems, Family Respiratory Disorders, Family Cardiac Disorders, Family Gastrointestinal Problems, Family Cancer, Family Surgery or Family Anesthesia Reaction Surgical History SURGICAL: Positive Coronary Stent, Cardiac Catheterization and Abdominal Surgery Social History SMOKING STATUS: Never smoker Exam Vital Signs Temp Pulse Resp BP Pulse Ox O2 Del Method 98.7 F 75 18 131/66 H 97 Room Air 08/29/24 10:22 08/29/24 10:22 08/29/24 10:22 08/29/24 10:22 08/29/24 10:22 08/29/24 10:22 Narrative Exam General: AOx3, cooperative Skin: Intact, no cyanosis or edema noted. HEENT: Atraumatic/normocephalic, MAURICE, neck supple, Seems dehydrated, cracked tongue Heart: RRR, S1 and S2 without clicks or murmurs Lungs: Clear on auscultation bilaterally, no difficulty breathing Abdomen: Midline abdominal incision scar,Soft, nontender. Bowel sounds present . Vascular: Peripheral pulses palpable Neuro: No focal neurological deficits noted. Results: Labs 08/30/24 05:18 08/30/24 05:18 Labs: Short CBC 08/29/24 Range/Units 10:56 WBC 3.3 L (3.8-10.6) Thou/mm3 Hgb 12.4 L (13.5-16.0) g/dL Hct 36.6 L (41.0-53.0) % Plt Count 176 D (140-440) Thou/mm3 BMP 08/29/24 10:56 Sodium 138 Potassium 2.9 L Chloride 102 Carbon Dioxide 26.4 BUN 17 Creatinine 1.0 Glucose 138 H Calcium 9.4 Liver Function 08/29/24 Range/Units 10:56 Total Bilirubin 0.7 (0.3-1.2) mg/dL AST 16 (0-34) U/L ALT 15 (10-49) U/L Alkaline Phosphatase 64 (46-116) U/L Albumin 4.4 (3.4-4.8) gm/dL Urine 08/29/24 Range/Units 11:30 Urine Color Yellow (Lt Yel-Yel) Urine Clarity Clear (Clear/Hazy) Urine pH 6.0 (5.0-7.0) Ur Specific [place] 1.044 H (1.001-1.035) Urine Protein 2+ A (Neg - Trace) Urine Glucose (UA) Trace (Negative) Quality Measures Quality Measures VTE prophylaxis (scd) Advance care planning discussed with:: patient Medications Home Medications and Allergies Home Medications ?Medication ?Instructions ?Recorded ?Confirmed ?Type ferrous sulfate 325 mg (65 mg 325 mg PO DAILY 02/17/24 08/29/24 History iron) tablet (FeroSul) sucralfate 1 gram tablet 1 g PO BID 02/17/24 08/29/24 History aspirin 325 mg tablet 325 mg PO QDAY 07/27/24 08/29/24 History lisinopril 5 mg tablet 5 mg PO QDAY 07/27/24 08/29/24 History Allergies Allergy/AdvReac Type Severity Reaction Status Date / Time Penicillins Allergy Severe Rash Verified 08/29/24 09:44 Visit Medications Sodium Chloride (Ns) 1,000 mls @ 100 mls/hr IV .Q10H KADIE Stop: 09/28/24 14:12 Last Admin: 08/29/24 14:38 Dose: 100 mls/hr Assessment & Plan Plan Patient is a 82-year-old male with a past medical history of hypertension, hypercholesterolemia, GERD, peptic ulcer disease, anemia, patient is followed by Dr. Horvath and is on aspirin and statin but unsure of the indication, denied having a coronary angiogram. Patient had a recent surgery for hernia repair last month in July, came into the ER complaining of right lower quadrant abdominal pain for the past few days, difficulty passing stools, reported he had 1 bowel movement yesterday, and had some drops of blood after the bowel movement, reported having dark stools over the past 4 days, of note patient is reported taking iron pills for anemia. Denied having any fever, chest pain, shortness of breath. Denied having any diarrhea, physical exam unremarkable for abdominal rigidity or rebound tenderness. CT abdomen pelvis shows severely distended colon with toxic megacolon appearance, as well as diffuse prominent rectal wall thickening, proctitis versus rectal tumor possible. ER consulted oscillograph technician Dr. Reynolds who recommended rectal tube and getting general surgery on board. Reached out to general surgeon Dr Oliveira who said he will Evaluate the patient and give recommendations. #Toxic megacolon CT abdomen pelvis shows severely distended colon which extend beneath both hemidiaphragms, 40 mm right liver lobe cyst, absent gallbladder, toxic megacolon appearance, as well as proctitis versus rectal tumor like findings including diffuse rectal wall thickening. ? Dr. Reynolds was consulted by ER provider who recommended adding a rectal tube and getting general surgery on board ? Dr. Oliveira was consulted due to concern for toxic megacolon, Possible surgery ? Keep patient n.p.o. ? IV fluids, ? C. difficile PCR orderes #Concern for GI bleed Bright red bleeding per rectum reported, possible hemorrhoids, patient reported negative colonoscopy 1 year ago, reports dark stools but also takes iron supplements. ? Protonix IV daily ? Will follow GI recommendations ? Transfuse hemoglobin less than 7 #Rule out rectal cancer CT abdomen pelvis shows severely distended colon which extend beneath both hemidiaphragms, 40 mm right liver lobe cyst, absent gallbladder, toxic megacolon appearance, as well as proctitis versus rectal tumor like findings including diffuse rectal wall thickening. ? Dr. Reynolds was consulted by ER provider who recommended adding a rectal tube and getting general surgery on board #Peptic ulcer disease #Hypertension #Hypercholesterolemia ? Protonix IV daily ? holding aspirin due possiblity of surgical intervention. ? continue lisinopril 5 mg Disposition: pending general surgery and GI recs DVT prophylaxis: SCD, GI prophylaxis: protonix Diet: NPO Lines: PIV CODE STATUS: Full Plan of care discussed with my attending Dr. Aldo Worley, pgy 2 Attending Provider Attestation/Addendum I reviewed labs, imaging, EKG, home medications and prior available records. Face to face evaluation was performed by me. I have personally examined the patient and discussed assessment and plan with the IM team. I reviewed the resident note and agree with the plan with exceptions as below. See my addendum for the same date 08/29
[2024-08-29] MEDS: PANTOPRAZOLE INJ 40 MG VIAL IVP (16:42)
[2024-08-29] MEDS: POT CHL ADDITIVE 30 MEQ in SODIUM CHLORIDE 0.9% 1000 ML 1,000 ML 120 MEQ IV (16:42)
[2024-08-29 17:25] LABS: Carcinoembryonic Antigen 2.9 ng/mL (0.0-5.0)
[2024-08-29 17:27] VITALS: BMI 27.8
--- NOTE | 2024-08-29 19:37 | PD.SURCONS ---
HPI Consult details Consult date: 08/29/24 Reason for consultation narrative: Abdominal pain History of present illness: 83-year-old male with history of hypertension, hypercholesterolemia, CAD status post stent placement, prostate cancer status post prostatectomy underwent laparoscopic assisted incisional hernia repair with mesh about a month ago. Initially he was doing well, eating and tolerating diet well without nausea or vomiting and having bowel movement. Over the past 3 days he has noted abdominal distention with some diarrhea. He denies nausea, vomiting, fever, chills or blood per rectum. According to the patient and his family he has had upper and lower endoscopy in [place] about a year ago. CT scan revealed megacolon. Patient was admitted for further management. Review of Systems Constitutional Constitutional: Denies chills and Denies fever(s) Cardiovascular Cardiovascular: Denies chest pain Respiratory Respiratory: Denies cough Gastrointestinal Gastrointestinal: Reports abdominal pain, Denies nausea and Denies vomiting Genitourinary Genitourinary: Denies difficulty urinating Hematologic/Lymphatic Hematologic/Lymphatic: Denies easy bleeding and Denies easy bruising Past Medical History Surgical History OTHER SURGICAL HX: Cholecystectomy, robotic prostatectomy, laparoscopic assisted incisional hernia repair, cardiac cath with stent placement, right inguinal hernia repair with mesh Meds Home Medications and Allergies Home Medications ?Medication ?Instructions ?Recorded ?Confirmed ?Type ferrous sulfate 325 mg (65 mg 325 mg PO DAILY 02/17/24 08/29/24 History iron) tablet (FeroSul) sucralfate 1 gram tablet 1 g PO BID 02/17/24 08/29/24 History aspirin 325 mg tablet 325 mg PO QDAY 07/27/24 08/29/24 History lisinopril 5 mg tablet 5 mg PO QDAY 07/27/24 08/29/24 History Allergies Allergy/AdvReac Type Severity Reaction Status Date / Time Penicillins Allergy Severe Rash Verified 08/29/24 09:44 Exam Vital Signs Temp Pulse Resp BP Pulse Ox O2 Del Method 98.8 F 78 17 154/74 H 99 Room Air 08/29/24 15:00 08/29/24 15:00 08/29/24 15:00 08/29/24 15:00 08/29/24 15:00 08/29/24 15:00 Constitutional Constitutional: no acute distress Routine Abdominal Exam Abdominal: Present soft and distended Comments: He has hypoactive bowel sounds, no evidence of hernia or peritonitis at this time Results Results: Laboratory Laboratory results: results reviewed Results: Imaging CT scan - abdomen: report reviewed and image reviewed CT scan - pelvis: report reviewed and image reviewed Assessment & Plan Problem List (1) Abdominal pain: Status: Acute Additional Assessment Additional comments: Pt had megacolon, clinically he does not appear to be toxic Plan Continue antibiotics. Agree with rectal tube. Check stool for c.diff. Will follow
[2024-08-29 20:00] VITALS: BP 157/75; PULSE 77; RESP 18; TEMP 36.3; O2SAT 96
--- NOTE | 2024-08-29 20:02 | ESCONSULT_ITS ---
HPI Data of Consult Requesting Physician: Travon Carlson MD Primary Care Provider: Capo Barone PA-C Consult Narrative Reason for consult: Abdominal distention, abnormal CT AP History of present illness: 83 years old male being evaluated at a call from the emergency room physician and physician executive marketing assistant Patient presented there about increasing abdominal distention lower abdominal pain and discomfort as well as constipation CT scan of the abdomen pelvis without contrast showed distended colon with stool I was consulted And I requested the ER physician executive marketing assistant to insert a rectal tube Patient has a history of essential hypertension hyperlipidemia peptic ulcer disease anemia and has a history of dark stools and also has seen some blood in the stool with the last bowel movement which was yesterday He had a repair of a hernia in July of last year cc:: cc: Travon Carlson MD Review of Systems Review of Systems Systems Reviewed: All systems reviewed, normal except as documented Past Medical History Surgical History OTHER SURGICAL HX: As in the history of present illness Meds Home Medications and Allergies Home Medications ?Medication ?Instructions ?Recorded ?Confirmed ?Type vibegron 75 mg tablet (Gemtesa) 75 mg PO QDAY 09/28/23 07/28/24 History ferrous sulfate 325 mg (65 mg 325 mg PO DAILY 02/17/24 08/29/24 History iron) tablet (FeroSul) sucralfate 1 gram tablet 1 g PO BID 02/17/24 08/29/24 History aspirin 325 mg tablet 325 mg PO QDAY 07/27/24 08/29/24 History lisinopril 5 mg tablet 5 mg PO QDAY 07/27/24 08/29/24 History lovastatin 40 mg tablet 40 mg PO DAILY 07/27/24 07/28/24 History Allergies Allergy/AdvReac Type Severity Reaction Status Date / Time Penicillins Allergy Severe Rash Verified 08/29/24 09:44 Exam Vital Signs Temp Pulse Resp BP Pulse Ox O2 Del Method 98.8 F 78 17 154/74 H 99 Room Air 08/29/24 15:00 08/29/24 15:00 08/29/24 15:00 08/29/24 15:00 08/29/24 15:00 08/29/24 15:00 Constitutional Comments: Comfortable Routine Respiratory Exam Comments: Normal to auscultation Routine Abdominal Exam Comments: Somewhat distended positive bowel sounds Results Labs 08/29/24 10:56 08/29/24 10:56 Labs: Short CBC 08/29/24 Range/Units 10:56 WBC 3.3 L (3.8-10.6) Thou/mm3 Hgb 12.4 L (13.5-16.0) g/dL Hct 36.6 L (41.0-53.0) % Plt Count 176 D (140-440) Thou/mm3 BMP 08/29/24 10:56 Sodium 138 Potassium 2.9 L Chloride 102 Carbon Dioxide 26.4 BUN 17 Creatinine 1.0 Glucose 138 H Calcium 9.4 Liver Function 08/29/24 Range/Units 10:56 Total Bilirubin 0.7 (0.3-1.2) mg/dL AST 16 (0-34) U/L ALT 15 (10-49) U/L Alkaline Phosphatase 64 (46-116) U/L Albumin 4.4 (3.4-4.8) gm/dL Urine 08/29/24 Range/Units 11:30 Urine Color Yellow (Lt Yel-Yel) Urine Clarity Clear (Clear/Hazy) Urine pH 6.0 (5.0-7.0) Ur Specific [place] 1.044 H (1.001-1.035) Urine Protein 2+ A (Neg - Trace) Urine Glucose (UA) Trace (Negative) Assessment and Plan Additional Assessment & Plan Additional Plan: # Colonic inertia with stool impaction Rectal tube placed see what the results show Once distention goes down somewhat GoLytely flush Other medical problems include # Essential hypertension # Hyperlipidemia # Peptic ulcer disease # Anemia Thank you very much for the opportunity to participate in the care of this patient
[2024-08-29 20:21] LABS: Iron 12 mcg/dL (65-175); Percent Iron Saturation 4 % (20-55); Total Iron Binding Capacity 274 mcg/dL (250-425); Unsaturated Iron Binding 262 (225-295)
[2024-08-29] MEDS: ACETAMINOPHEN 325 MG TABLET 650 MG PO (21:21)
[2024-08-29 21:53] LABS: Collection Type, Urine Clean Catch
[2024-08-29 22:02] LABS: Bilirubin,Urine Negative (Negative); Blood,Urine 1+ (Negative); Clarity,Urine Clear (Clear/Hazy); Color,Urine Yellow (Lt Yel-Yel); Glucose, Urine Negative (Negative); Ketones,Urine 2+ (Negative); Leukocyte Esterase,Urine Negative (Negative); Nitrite,Urine Negative (Negative); Protein,Urine 1+ (Neg - Trace); RBC,Urine 3 /hpf (0-3); Specific Gravity,Urine 1.035 (1.001-1.035); Squamous Epithelial Cell,Urine 1 /hpf (0-5); WBC,Urine 3 /hpf (0-5)
[2024-08-29 22:05] VITALS: PULSE 67; RESP 16; RESP 96
[2024-08-29] MEDS: metroNIDAZOLE/NS 500 MG IVPB 500 MG/100 ML BAG 200 MG IV (22:59)
[2024-08-29] MEDS: cefTRIAXone/D5w 1gm IV premix 50 ML IV (23:27)
[2024-08-30] VITALS (8 sets, daily range): BP systolic 146–164; BP diastolic 65–81; PULSE 55–92; RESP 17–95; TEMP 36.1–37.1; O2SAT 94–96
[2024-08-30] MEDS: POT CHL ADDITIVE 30 MEQ in SODIUM CHLORIDE 0.9% 1000 ML 1,000 ML 120 MEQ IV (04:30)
[2024-08-30] MEDS: metroNIDAZOLE/NS 500 MG IVPB 500 MG/100 ML BAG 200 MG IV ×3 (06:01→21:35)
[2024-08-30 06:06] LABS: Basophils % (Auto) 1 % (0-2.5); Eosinophils % (Auto) 1 % (0-10); Hematocrit 33.8 % (41.0-53.0); Hemoglobin 11.5 g/dL (13.5-16.0); Immature Granulocytes % (Auto) 0 % (0-0); Lymphocytes # (Auto) 0.6 Thou/mm3 (1.0-4.8); Lymphocytes % (Auto) 21 % (10-50); Mean Corpuscular Hemoglobin 32.4 pg (25.0-35.0); Mean Corpuscular Volume 95 fL (80-100); Monocytes # (Auto) 0.5 Thou/mm3 (0.0-0.8); Monocytes % (Auto) 15 % (0-12); Neutrophils # (Auto) 1.9 Thou/mm3 (1.8-7.7); Neutrophils % (Auto) 62 % (37-80); Nucleated Red Blood Cell % 0 /100 WBC (0); Platelet Count 150 Thou/mm3 (140-440); RDW Standard Deviation 45.5 fL (35.1-43.9); Red Blood Count 3.55 Miln/mm3 (4.50-5.90)
[2024-08-30 06:24] LABS: INR 1.1 (0.9-1.3); Prothrombin Time 11.8 Seconds (9.0-12.2)
[2024-08-30 06:52] LABS: Alanine Aminotransferase 11 U/L (10-49); Albumin, Serum 3.6 gm/dL (3.4-4.8); Alkaline Phosphatase 53 U/L (46-116); Anion Gap 11 (7-16); Aspartate Amino Transferase 13 U/L (0-34); BUN/Creatinine Ratio 18 Ratio (12-20); Bilirubin,Direct 0.2 mg/dL (0.0-0.3); Bilirubin,Total 0.5 mg/dL (0.3-1.2); Blood Urea Nitrogen 14 mg/dL (9-23); Calcium 8.6 mg/dL (8.3-10.6); Carbon Dioxide 23.1 mMol/L (20.0-31.0); Cardiac Risk Estimate 2.5 RATIO (4.0-6.7); Chloride 107 mMol/L (98-107); Cholesterol 125 mg/dL (132-200); Creatinine (Component) 0.8 mg/dL (0.6-1.3); Estimated Creatinine Clearance 66.5 mL/min (>60); Glucose 99 mg/dL (74-106); HDL Cholesterol 50 mg/dL (40-60); LDL Cholesterol,Calculated 58 mg/dL (0-130); Osmolality,Calculated 281 (275-295); Phosphorous 2.6 mg/dL (2.4-5.1); Sodium 141 mMol/L (136-145); Thyroid Stimulating Hormone 1.34 uIU/mL (0.55-4.78); Total Protein 5.7 gm/dL (5.7-8.2); Triglycerides 83 mg/dL (30-150); eGFR > 60 See Note
[2024-08-30] MEDS: PANTOPRAZOLE INJ 40 MG VIAL IVP (09:42)
[2024-08-30] MEDS: Lisinopril 2.5 MG TABLET 5 MG PO (09:45)
[2024-08-30] MEDS: cefTRIAXone/D5w 1gm IV premix 50 ML IV (09:45)
[2024-08-30] MEDS: POTASSIUM CHLORIDE 10% 20 MEQ/15 ML UDC 40 MEQ PO (09:46)
--- NOTE | 2024-08-30 11:03 | PC.SS ---
Initial assessment: Patient is an 83 year old male admitted for toxic megacolon. Patient appeared alert and oriented during assessment, at bed side was patient's family. Patient confirmed demographic information. Patient lives at home with son, Anselmo Paulino. Patient reports being independent with ambulation, however has a walker at home if necessary. Patient's PCP is Dr. Capo Barone. Patient is followed by Dr. Rogers and Dr. Horvath as well. Patient's pharmacy is [facility] in [place]. Patient assigned his daughter, Tayler Franks as his alternate medical decision maker. Patient informs he will like to return home upon discharge. No needs identified at this time. D/c plan: Home Next of kin: daughterTayler
--- NOTE | 2024-08-30 12:19 | PD.SURPROG ---
Documentation for date of: 08/30/24 Subjective Subjective Narrative: Patient is seen and examined. He denies nausea or vomiting. A rectal tube was placed with minimal output Exam Vital Signs Temp Pulse Resp BP Pulse Ox O2 Del Method 97.0 F 55 L 20 164/75 H 95 Room Air 08/30/24 12:00 08/30/24 12:00 08/30/24 12:00 08/30/24 12:00 08/30/24 12:00 08/30/24 12:00 Constitutional Constitutional: no acute distress Routine Abdominal Exam Comments: Abdomen is soft and distended, no evidence of peritonitis at this time Assessment & Plan Assessment Additional comments: Megacolon, may have pseudoobstruction Plan Rectal tube in place, patient was ordered to have GoLytely
[2024-08-30] MEDS: NA SU/NAHCO3/KC/PEG (Golytely) 4,000 ML BTL 4000 ML PO (13:15)
--- NOTE | 2024-08-30 14:08 | XR_ITS ---
Examination: Abdomen AP single view Technique: AP portable supine abdomen, single view Exam date and time: August 30, 2024 1421 hours INDICATIONS: Post orogastric tube placement FINDINGS: Orogastric tube in stomach satisfactory position Severe colonic ileus with large amounts of stool throughout the entire colon IMPRESSION: Orogastric tube in stomach satisfactory position
--- NOTE | 2024-08-30 14:37 | PC.SS ---
Rounding note: surgery is following patient's case. Pending recommendations.
--- NOTE | 2024-08-30 15:11 | PC.NURSE ---
patient isnt tolerating oliver, Dr. Dumont and Dr. Urrutia at bedside
--- NOTE | 2024-08-30 15:13 | XR_ITS ---
Examination: Abdomen AP single view Technique: AP portable supine abdomen, single view Exam date and time: August 30, 2024 1531 hours INDICATIONS: Abdominal distention this week. FINDINGS: Orogastric tube in stomach satisfactory position Severe colonic ileus air in the colon beneath the hemidiaphragm on the right No definite free air IMPRESSION: Severe colonic ileus
--- NOTE | 2024-08-30 15:17 | ESPR_ITS ---
Documentation for date of: 08/30/24 Senior resident attestation: Patient evaluated bedside, rectal tube was inserted per GI recommendations, but minimal output in the rectal tube, reached out to Dr. Reynolds who recommended carefully administering GoLytely at 100 cc/h via NG tube, and continue careful observation for abdominal distention, after about 200 cc, noted tense abdomen and worsening abdominal distention, but physical exam negative for rebound tenderness or rigidity, GoLytely was discontinued and patient started on low intermittent suction, Dr. Reynolds was updated with the findings, spoke to Dr. Reynolds about decompression colonoscopy, but in the presence of megacolon, he recommended against it due to high risk of perforation. I ordered a repeat KUB, following GI recommendations and made patient n.p.o. pending C. difficile PCR . General surgery following the patient. Patient evaluated and examined at the bedside, plan of care discussed with rest of the team including my attending physician, except as noted. Quresh PGY2 Subjective Subjective Interval history: 08/30: no acute overnight events, pt is seen and examined at bedside. Pt complains of abdominal pain and distention. 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 Rudolph years ago. Patient also underwent hernia repair surgery in July and did not take any opioids for pain control. Patient states he is unable to pass gas and has not had a bowel movement for over a week and the rectal tube has minimal output. Per Dr. Reynolds's recommendation patient will likely need GoLytely flush. Patient has agreed to drink the GoLytely slowly rather than inserting an NG tube. CBC and CMP is unremarkable other than hypokalemia and 80 mEq is repleted. Exam Vital Signs Temp Pulse Resp BP Pulse Ox O2 Del Method 97.0 F 55 L 20 164/75 H 95 Room Air 08/30/24 12:00 08/30/24 12:00 08/30/24 12:00 08/30/24 12:00 08/30/24 12:08/30/24 12:00 Narrative Exam GENERAL: A&Ox3 . Awake, Not in acute distress NEURO: no focal neurological deficits HEENT: Atraumatic, Normocephalic. mucous membranes moist. Eyes open, symmetrical, & clear HEART: Normal Heart Sounds LUNGS: Clear to auscultation with no wheezing or crackles. ABDOMEN: distended, tenderness, bowel sounds heard, no guarding or rebound tenderness SKIN: No Rash or ecchymoses EXTREMITIES: No edema, tenderness, able to move all 4 extremities, pedal pulses palpated Objective Labs 08/31/24 04:35 08/31/24 04:35 Labs: Laboratory Results - last 24 hr 08/29/24 08/29/24 08/30/24 16:28 20:45 05:18 WBC 3.0 L RBC 3.55 L Hgb 11.5 L Hct 33.8 L MCV 95 MCH 32.4 MCHC 34.0 RDW Std Deviation 45.5 H Plt Count 150 Neut % (Auto) 62 Lymph % (Auto) 21 [place] % (Auto) 15 H Eos % (Auto) 1 Baso % (Auto) 1 Neut # (Auto) 1.9 Lymph # (Auto) 0.6 L [place] # (Auto) 0.5 Eos # (Auto) 0.0 Baso # (Auto) 0.0 Immature Gran # (Auto) 0.00 Absolute Nucleated RBC 0.00 Immature Gran % 0 Nucleated RBC % 0 PT 11.8 INR 1.1 Sodium 141 Potassium 3.0 L Chloride 107 Carbon Dioxide 23.1 Anion Gap 11 BUN 14 Creatinine 0.8 Estim Creat Clear Calc 66.5 eGFR > 60 BUN/Creatinine Ratio 18 Glucose 99 Calculated Osmolality 281 Calcium 8.6 Phosphorus 2.6 Magnesium 2.0 Iron 12 L TIBC 274 Iron Saturation 4 L Unsat Iron Binding 262 Total Bilirubin 0.5 Direct Bilirubin 0.2 AST 13 ALT 11 Alkaline Phosphatase 53 Total Protein 5.7 Albumin 3.6 D Triglycerides 83 Cholesterol 125 L LDL Cholesterol, Calc 58 HDL Cholesterol 50 Cholesterol/HDL Ratio 2.5 L Carcinoembryonic Ag 2.9 CA 125 Antigen 45.0 H TSH 1.34 Ur Collection Type Clean Catch Urine Color Yellow Urine Clarity Clear Urine pH 6.0 Ur Specific [place] 1.035 Urine Protein 1+ A Urine Glucose (UA) Negative Urine Ketones 2+ A Urine Blood 1+ A Urine Nitrite Negative Urine Bilirubin Negative Urine Urobilinogen (Auto) 3.0 Ur Leukocyte Esterase Negative Urine RBC 3 Urine WBC 3 Ur Squamous Epith Cells 1 Urine Bacteria None Quality Measures Quality Measures VTE prophylaxis (scd) Advance care planning discussed with:: patient Assessment & Plan Assessment Current Active Medications: Generic Name Dose Route Start Last Admin Trade Name Freq PRN Reason Stop Dose Admin Acetaminophen 650 mg 08/29/24 15:48 08/29/24 21:21 Acetaminophen 325 Mg Tablet PO 09/28/24 15:47 650 mg Q6H PRN Administration PAIN OR FEVER > 101 Metronidazole 500 mg in 100 mls @ 200 mls/hr 08/29/24 22:43 08/30/24 06:01 Flagyl 500 Mg Iv IV 09/05/24 22:42 200 mls/hr Q8HR KADIE Administration Ceftriaxone Sodium/Dextrose 50 mls @ 100 mls/hr 08/30/24 09:00 08/30/24 09:45 Rocephin/D5w 1gm Iv Premix IV 09/06/24 08:59 100 mls/hr QDAY KADIE Administration Lisinopril 5 mg 08/30/24 09:00 08/30/24 09:45 Lisinopril 2.5 Mg Tablet PO 09/29/24 08:59 5 mg QDAY KADIE Administration Morphine Sulfate 4 mg 08/30/24 10:34 Morphine Sulf Inj 10 Mg/Ml Vial IVP 09/04/24 10:33 Q6HR PRN PAIN SCALE 7-10 (Severe Ondansetron HCl 4 mg 08/29/24 15:48 Ondansetron Inj 2 Mg/Ml Inj 2 Ml IV 09/28/24 15:47 Q6H PRN NAUSEA OR VOMITING Protocol Pantoprazole Sodium 40 mg 08/29/24 16:15 08/30/24 09:42 Pantoprazole Inj 40 Mg Vial IVP 09/28/24 16:14 40 mg QDAY KADIE Administration Sennosides 2 tab 08/29/24 15:48 Senna Tablet PO 09/28/24 15:47 BID PRN CONSTIPATION Protocol Plan Patient is a 82-year-old male with a past medical history of hypertension, hypercholesterolemia, GERD, peptic ulcer disease, anemia, patient is followed by Dr. Horvath and is on aspirin and statin but unsure of the indication, denied having a coronary angiogram. Patient had a recent surgery for hernia repair last month in July, came into the ER complaining of right lower quadrant abdominal pain for the past few days, difficulty passing stools, reported he had 1 bowel movement yesterday, and had some drops of blood after the bowel movement, reported having dark stools over the past 4 days, of note patient is reported taking iron pills for anemia. Denied having any fever, chest pain, shortness of breath. Denied having any diarrhea, physical exam unremarkable for abdominal rigidity or rebound tenderness. CT abdomen pelvis shows severely distended colon with toxic megacolon appearance, as well as diffuse prominent rectal wall thickening, proctitis versus rectal tumor possible. ER consulted clerical stock inspector Dr. Reynolds who recommended rectal tube and getting general surgery on board. Reached out to general surgeon Dr Oliveira who said he will Evaluate the patient and give recommendations. #Toxic megacolon #Concern for GI bleed CT abdomen pelvis shows severely distended colon which extend beneath both hemidiaphragms, 40mm right liver lobe cyst, absent gallbladder, toxic megacolon appearance, as well as proctitis versus rectal tumor like findings including diffuse rectal wall thickening. Bright red bleeding per rectum reported, possible hemorrhoids, patient reported negative colonoscopy 1 year ago, reports dark stools but also takes iron supplements ? Dr. Reynolds was consulted by ER provider who recommended adding a rectal tube ? General surgery, Dr. Oliveira was consulted due to concern for toxic megacolon ? Keep patient n.p.o. ? IV fluids ? Protonix IV daily -Ceftriaxone started 08/30- -Metronidazole started 08/29- ? C. difficile PCR ordered, however patient has minimal output we will continue to monitor if sample of the stool can be obtained -Patient may benefit from colonoscopy to rule out rectal cancer # History of peptic ulcer disease # History of hypertension # History of hypercholesterolemia ? Protonix IV daily -Sucralfate p.o. twice daily ? holding aspirin due possibility of surgical intervention. ? continue lisinopril 5 mg Disposition: pending general surgery and GI recs DVT prophylaxis: SCD, GI prophylaxis: protonix Diet: NPO Lines: PIV CODE STATUS: Full Assessment and plan discussed with my senior resident Dr. Worley & attending physician Dr. Winnie Fernandez (PGY-1)- Internal medicine resident Attending Provider Attestation/Addendum Alla Espinoza, , attest that I was physically present for the xiao portions of the service and evaluated the patient with the resident and I reviewed and discussed the case with the resident and agree with the resident's findings and plans of care as documented above Patient seen and evaluated this a.m. Patient with complaints of worsening distention of abdominal bloating. GI recommends starting patient on GoLytely with NG tube. However, due to concern for worsening distention, will hold off on NG tube at this time. Patient states that he can drink the GoLytely slowly as tolerated, this will prevent the patient from developing worsening distention and nausea or vomiting if not tolerated well. 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 Patient had been recently seen in [place] for mass in pancreas and underwent ERCP and stent placement and laparoscopic surgery of the ampulla. She states that the surgery was very complicated and patient had been placed on different antibiotics due to complications. She denies any recent antibiotic use otherwise. She denies any history of C. difficile as well. Patient was able to have a small bowel movement noted in rectal tube after he had gotten up with physical therapy today. Will test for C. difficile which is concerning for the possible cause of toxic megacolon. Patient otherwise has no other complaints at this time.
--- NOTE | 2024-08-30 15:59 | PD.IMPROG ---
Documentation for date of: 08/30/24 Subjective Subjective Interval history: Patient did not tolerate the GoLytely More abdominal distention NGT to intermittent suction Reviewed the KUB Dilated colon Rectal tube is not working There is no clear stricture so endoscopic decompression is not going to work Recommend surgery for most likely colostomy Exam Vital Signs Temp Pulse Resp BP Pulse Ox O2 Del Method 97.0 F 55 L 20 164/75 H 95 Room Air 08/30/24 12:00 08/30/24 12:00 08/30/24 12:00 08/30/24 12:00 08/30/24 12:00 08/30/24 12:00 Objective Labs 08/30/24 05:18 08/30/24 05:18 Labs: Laboratory Results - last 24 hr 08/29/24 08/29/24 08/30/24 16:28 20:45 05:18 WBC 3.0 L RBC 3.55 L Hgb 11.5 L Hct 33.8 L MCV 95 MCH 32.4 MCHC 34.0 RDW Std Deviation 45.5 H Plt Count 150 Neut % (Auto) 62 Lymph % (Auto) 21 [place] % (Auto) 15 H Eos % (Auto) 1 Baso % (Auto) 1 Neut # (Auto) 1.9 Lymph # (Auto) 0.6 L [place] # (Auto) 0.5 Eos # (Auto) 0.0 Baso # (Auto) 0.0 Immature Gran # (Auto) 0.00 Absolute Nucleated RBC 0.00 Immature Gran % 0 Nucleated RBC % 0 PT 11.8 INR 1.1 Sodium 141 Potassium 3.0 L Chloride 107 Carbon Dioxide 23.1 Anion Gap 11 BUN 14 Creatinine 0.8 Estim Creat Clear Calc 66.5 eGFR > 60 BUN/Creatinine Ratio 18 Glucose 99 Calculated Osmolality 281 Calcium 8.6 Phosphorus 2.6 Magnesium 2.0 Iron 12 L TIBC 274 Iron Saturation 4 L Unsat Iron Binding 262 Total Bilirubin 0.5 Direct Bilirubin 0.2 AST 13 ALT 11 Alkaline Phosphatase 53 Total Protein 5.7 Albumin 3.6 D Triglycerides 83 Cholesterol 125 L LDL Cholesterol, Calc 58 HDL Cholesterol 50 Cholesterol/HDL Ratio 2.5 L Carcinoembryonic Ag 2.9 CA 125 Antigen 45.0 H TSH 1.34 Ur Collection Type Clean Catch Urine Color Yellow Urine Clarity Clear Urine pH 6.0 Ur Specific [place] 1.035 Urine Protein 1+ A Urine Glucose (UA) Negative Urine Ketones 2+ A Urine Blood 1+ A Urine Nitrite Negative Urine Bilirubin Negative Urine Urobilinogen (Auto) 3.0 Ur Leukocyte Esterase Negative Urine RBC 3 Urine WBC 3 Ur Squamous Epith Cells 1 Urine Bacteria None Impressions Impression: # Colonic pseudoobstruction # Dilated colon on recent KUB Endoscopic decompression is not going to work as there is no clear stricture Recommend diverting colostomy Assessment & Plan A&P Narrative # Colonic inertia with stool impaction Rectal tube placed see what the results show Once distention goes down somewhat GoLytely flush Other medical problems include # Essential hypertension # Hyperlipidemia # Peptic ulcer disease # Anemia Thank you very much for the opportunity to participate in the care of this patient Time Spent With Patient Time: Total time spent is greater than 50% in coordination of care (as documented) at patient's floor/unit and/or counseling patient:
--- NOTE | 2024-08-30 16:57 | PC.NURSE ---
PER DOCTOR QUARESH ORDERS, COLLECTED STOOL SAMPLE FROM RECTAL TUBE BAG SENT OUT TO LAB
[2024-08-30] MEDS: MORPHINE SULF INJ 10 MG/ML VIAL 4 MG IVP (17:16)
[2024-08-30] MEDS: SUCRALFATE 1 GM TABLET PO (21:34)
[2024-08-31] VITALS (14 sets, daily range): BP systolic 139–200; BP diastolic 61–93; PULSE 62–88; RESP 1–98; TEMP 36.2–37; O2SAT 95–99
[2024-08-31] MEDS: metroNIDAZOLE/NS 500 MG IVPB 500 MG/100 ML BAG 200 MG IV ×3 (05:42→22:10)
[2024-08-31 06:09] LABS: Basophils % (Auto) 1 % (0-2.5); Eosinophils % (Auto) 0 % (0-10); Hematocrit 34.6 % (41.0-53.0); Hemoglobin 11.8 g/dL (13.5-16.0); Immature Granulocytes % (Auto) 0 % (0-0); Immature Granulocytes Auto 0.01 Thou/mm3 (0.00-0.00); Lymphocytes # (Auto) 0.5 Thou/mm3 (1.0-4.8); Lymphocytes % (Auto) 16 % (10-50); Mean Corpuscular HGB Conc 34.1 g/dl (31.0-37.0); Mean Corpuscular Hemoglobin 32.8 pg (25.0-35.0); Mean Corpuscular Volume 96 fL (80-100); Monocytes # (Auto) 0.5 Thou/mm3 (0.0-0.8); Monocytes % (Auto) 14 % (0-12); Neutrophils # (Auto) 2.2 Thou/mm3 (1.8-7.7); Neutrophils % (Auto) 69 % (37-80); Nucleated Red Blood Cell % 0 /100 WBC (0); Platelet Count 158 Thou/mm3 (140-440); White Blood Count 3.2 Thou/mm3 (3.8-10.6)
[2024-08-31 06:50] LABS: Anion Gap 14 (7-16); BUN/Creatinine Ratio 18 Ratio (12-20); Blood Urea Nitrogen 14 mg/dL (9-23); Calcium 8.6 mg/dL (8.3-10.6); Chloride 107 mMol/L (98-107); Creatinine (Component) 0.8 mg/dL (0.6-1.3); Estimated Creatinine Clearance 66.5 mL/min (>60); Glucose 93 mg/dL (74-106); Osmolality,Calculated 285 (275-295); Sodium 143 mMol/L (136-145); eGFR > 60 See Note
[2024-08-31 08:17] LABS: Clostridium Difficile PCR Positive (Negative)
[2024-08-31] MEDS: POTASSIUM CHLORIDE 20 mEq TABCR 40 MEQ PO ×2 (08:27→14:26)
[2024-08-31] MEDS: Lisinopril 2.5 MG TABLET 5 MG PO (08:29)
[2024-08-31] MEDS: SUCRALFATE 1 GM TABLET PO (08:29)
[2024-08-31] MEDS: PANTOPRAZOLE INJ 40 MG VIAL IVP (08:30)
[2024-08-31] MEDS: VANCOMYCIN 125 MG CAPSULE 500 MG PO (10:46)
[2024-08-31] MEDS: KCL 20 mEq/L in D5-1/2NS 20 MEQ/1,000 ML BAG 75 MEQ IV (10:46)
[2024-08-31] MEDS: VANCOMYCIN 25 MG/ML 500 MG PO ×2 (12:27→17:35)
--- NOTE | 2024-08-31 12:42 | PD.SURPROG ---
Documentation for date of: 08/31/24 Subjective Subjective Narrative: Patient is seen and examined. Clinically he has not changed. He denies nausea or vomiting, rectal tube has not been draining Exam Vital Signs Temp Pulse Resp BP Pulse Ox O2 Del Method 97.2 F 86 18 171/76 H 96 Room Air 08/31/24 11:51 08/31/24 11:51 08/31/24 11:51 08/31/24 11:51 08/31/24 11:51 08/31/24 11:51 Constitutional Constitutional: no acute distress Routine Abdominal Exam Comments: Abdomen is soft and distended, no evidence of peritonitis at this time Assessment & Plan Assessment Additional comments: Megacolon most likely due to colonic pseudoobstruction. C. difficile toxins are positive and patient has hypokalemia Plan Correct hypokalemia and treat C. difficile colitis. Case was discussed with Dr. Reynolds. He will attempt colonoscopic decompression later today. If not successful patient may benefit from administration of neostigmine.
--- NOTE | 2024-08-31 16:53 | PD.RESPRO ---
Documentation for date of: 08/31/24 Senior resident attestation: Patient evaluated bedside, rectal tube was inserted per GI recommendations, but minimal output in the rectal tube, reached out to Dr. Reynolds who recommended carefully administering GoLytely at 100 cc/h via NG tube, and continue careful observation for abdominal distention, after about 200 cc, noted tense abdomen and worsening abdominal distention, but physical exam negative for rebound tenderness or rigidity, GoLytely was discontinued and patient started on low intermittent suction, Dr. Reynolds was updated with the findings, spoke to Dr. Reynolds about decompression colonoscopy, but in the presence of megacolon, he recommended against it due to high risk of perforation. I ordered a repeat KUB, following GI recommendations and made patient n.p.o. pending C. difficile PCR . General surgery following the patient. Dr Oliveira reevaluated the patient, and told that he would recommend agaisnt any surgery at this point, treat C diff colitis, and GI dr Reynolds to attempt colonoscopic decompression . Patient evaluated and examined at the bedside, plan of care discussed with rest of the team including my attending physician, except as noted. Quresh PGY2 Subjective Subjective Interval history: 08/31: No acute overnight events patient is seen and examined at bedside this morning patient's daughter is at bedside. Patient continues to be in discomfort he has not passed any gas and very minimal stool per rectal tube. Patient's stool culture is positive for C. difficile which is likely causing the toxic megacolon. Patient has NG tube placed yesterday and about 150 cc of output is noted. The GoLytely flush unlikely improved his symptom and per GI Dr. Reynolds would like to perform colonic decompression via colonoscopy. CBC and CMP is unremarkable other than hypokalemia and potassium is repleted Exam Vital Signs Temp Pulse Resp BP Pulse Ox O2 Del Method 97.2 F 88 18 148/78 H 96 Room Air 08/31/24 15:55 08/31/24 15:55 08/31/24 15:55 08/31/24 15:55 08/31/24 15:55 08/31/24 15:55 Narrative Exam GENERAL: A&Ox3 . Awake, Not in acute distress NEURO: no focal neurological deficits HEENT: Atraumatic, Normocephalic. mucous membranes moist. Eyes open, symmetrical, & clear, NG tube present HEART: Normal Heart Sounds LUNGS: Clear to auscultation with no wheezing or crackles. ABDOMEN: distended, tenderness, bowel sounds heard, no guarding or rebound tenderness SKIN: No Rash or ecchymoses EXTREMITIES: No edema, tenderness, able to move all 4 extremities, pedal pulses palpated Objective Labs 09/01/24 04:37 09/01/24 04:37 Labs: Laboratory Results - last 24 hr 08/30/24 08/31/24 16:45 04:35 WBC 3.2 L RBC 3.60 L Hgb 11.8 L Hct 34.6 L MCV 96 MCH 32.8 MCHC 34.1 RDW Std Deviation 46.0 H Plt Count 158 Neut % (Auto) 69 Lymph % (Auto) 16 [place] % (Auto) 14 H Eos % (Auto) 0 Baso % (Auto) 1 Neut # (Auto) 2.2 Lymph # (Auto) 0.5 L [place] # (Auto) 0.5 Eos # (Auto) 0.0 Baso # (Auto) 0.0 Immature Gran # (Auto) 0.01 H Absolute Nucleated RBC 0.00 Immature Gran % 0 Nucleated RBC % 0 Sodium 143 Potassium 3.0 L Chloride 107 Carbon Dioxide 22.0 Anion Gap 14 BUN 14 Creatinine 0.8 Estim Creat Clear Calc 66.5 eGFR > 60 BUN/Creatinine Ratio 18 Glucose 93 Calculated Osmolality 285 Calcium 8.6 Stl C. diff Tox B Gene Positive A Quality Measures Quality Measures VTE prophylaxis (scd) Advance care planning discussed with:: patient Assessment & Plan Assessment Current Active Medications: Generic Name Dose Route Start Last Admin Trade Name [place] PRN Reason Stop Dose Admin Acetaminophen 650 mg 08/31/24 09:46 Acetaminophen 325 Mg Tablet PO 09/28/24 15:47 Q6H PRN PAIN(1-3) OR FEVER > 101 Metronidazole 500 mg in 100 mls @ 200 mls/hr 08/29/24 22:43 08/31/24 14:10 Flagyl 500 Mg Iv IV 09/05/24 22:42 200 mls/hr Q8HR KADIE Administration Potassium Chloride/Dextrose/Sod Cl 20 meq in 1,000 mls @ 75 mls/hr 08/31/24 09:30 08/31/24 10:46 Kcl 20 Meq/L In D5-1/2ns IV 09/30/24 09:29 75 mls/hr .[id number] KADIE Administration Lisinopril 5 mg 08/30/24 09:00 08/31/24 08:29 Lisinopril 2.5 Mg Tablet PO 09/29/24 08:59 5 mg QDAY KADIE Administration Morphine Sulfate 4 mg 08/30/24 10:34 08/30/24 17:16 Morphine Sulf Inj 10 Mg/Ml Vial IVP 09/04/24 10:33 4 mg Q6HR PRN Administration PAIN SCALE 7-10 (Severe Ondansetron HCl 4 mg 08/29/24 15:48 Ondansetron Inj 2 Mg/Ml Inj 2 Ml IV 09/28/24 15:47 Q6H PRN NAUSEA OR VOMITING Protocol Pantoprazole Sodium 40 mg 08/29/24 16:15 08/31/24 08:30 Pantoprazole Inj 40 Mg Vial IVP 09/28/24 16:14 40 mg QDAY KADIE Administration Sennosides 2 tab 08/29/24 15:48 Senna Tablet PO 09/28/24 15:47 BID PRN CONSTIPATION Protocol Sucralfate 1 gm 08/30/24 21:00 08/31/24 08:29 Sucralfate 1 Gm Tablet PO 09/29/24 20:59 1 gm BID KADIE Administration Vancomycin HCl 500 mg 08/31/24 12:00 08/31/24 12:27 Vancomycin Oral Solution 25 Mg/Ml PO 09/07/24 11:59 500 mg QID KADIE Administration Plan Patient is a 82-year-old male with a past medical history of hypertension, hypercholesterolemia, GERD, peptic ulcer disease, anemia, patient is followed by Dr. Horvath and is on aspirin and statin but unsure of the indication, denied having a coronary angiogram. Patient had a recent surgery for hernia repair last month in July, came into the ER complaining of right lower quadrant abdominal pain for the past few days, difficulty passing stools, reported he had 1 bowel movement yesterday, and had some drops of blood after the bowel movement, reported having dark stools over the past 4 days, of note patient is reported taking iron pills for anemia. Denied having any fever, chest pain, shortness of breath. Denied having any diarrhea, physical exam unremarkable for abdominal rigidity or rebound tenderness. CT abdomen pelvis shows severely distended colon with toxic megacolon appearance, as well as diffuse prominent rectal wall thickening, proctitis versus rectal tumor possible. ER consulted sack sewer machine Dr. Reynolds who recommended rectal tube and getting general surgery on board. Reached out to general surgeon Dr Oliveira who said he will Evaluate the patient and give recommendations. #Toxic megacolon # C. difficile positive CT abdomen pelvis shows severely distended colon which extend beneath both hemidiaphragms, 40mm right liver lobe cyst, absent gallbladder, toxic megacolon appearance, as well as proctitis versus rectal tumor like findings including diffuse rectal wall thickening. Bright red bleeding per rectum reported, possible hemorrhoids, patient reported negative colonoscopy 1 year ago, reports dark stools but also takes iron supplements ? Dr. Reynolds was consulted by ER provider who recommended adding a rectal tube ? General surgery, Dr. Oliveira was consulted due to concern for toxic megacolon ? Keep patient n.p.o. ? IV fluids ? Protonix IV daily -P.o. vancomycin started 08/31- -IV metronidazole started 08/29- ? C. difficile PCR positive -Patient may benefit from colonoscopy to rule out rectal cancer # History of peptic ulcer disease # History of hypertension # History of hypercholesterolemia ? Protonix IV daily -Sucralfate p.o. twice daily ? holding aspirin due possibility of surgical intervention. ? continue lisinopril 5 mg Disposition: pending general surgery and GI recs DVT prophylaxis: SCD, GI prophylaxis: protonix Diet: NPO Lines: PIV CODE STATUS: Full Assessment and plan discussed with my senior resident Dr. Worley & attending physician Dr. Winnie Fernandez (PGY-1)- Internal medicine resident Attending Provider Attestation/Addendum Alla Espinoza, , attest that I was physically present for the xiao portions of the service and evaluated the patient with the resident and I reviewed and discussed the case with the resident and agree with the resident's findings and plans of care as documented above Patient seen and evaluated this AM. Patient remains distended with NG tube in place. C.diff toxin positive, will start patient vancomycin PO and metronidazole IV for fulminant C.diff colitis. GI plans for decompressive colonoscopy this evening. All questions and concerns addressed to patient and daughter's satisfaction.
[2024-09-01] VITALS (9 sets, daily range): BP systolic 111–151; BP diastolic 62–88; PULSE 58–78; RESP 16–96; TEMP 36.1–36.7; O2SAT 94–98; BMI 27.8
[2024-09-01] MEDS: KCL 20 mEq/L in D5-1/2NS 20 MEQ/1,000 ML BAG 75 MEQ IV ×2 (05:24→18:43)
[2024-09-01] MEDS: metroNIDAZOLE/NS 500 MG IVPB 500 MG/100 ML BAG 200 MG IV ×3 (05:32→21:13)
[2024-09-01] MEDS: VANCOMYCIN 25 MG/ML 500 MG PO ×4 (05:36→21:12)
[2024-09-01 05:50] LABS: Basophils % (Auto) 0 % (0-2.5); Eosinophils % (Auto) 1 % (0-10); Hematocrit 32.8 % (41.0-53.0); Hemoglobin 11.2 g/dL (13.5-16.0); Immature Granulocytes % (Auto) 1 % (0-0); Immature Granulocytes Auto 0.02 Thou/mm3 (0.00-0.00); Lymphocytes # (Auto) 0.9 Thou/mm3 (1.0-4.8); Lymphocytes % (Auto) 22 % (10-50); Mean Corpuscular HGB Conc 34.1 g/dl (31.0-37.0); Mean Corpuscular Hemoglobin 32.4 pg (25.0-35.0); Mean Corpuscular Volume 95 fL (80-100); Monocytes # (Auto) 0.5 Thou/mm3 (0.0-0.8); Monocytes % (Auto) 13 % (0-12); Neutrophils # (Auto) 2.6 Thou/mm3 (1.8-7.7); Neutrophils % (Auto) 64 % (37-80); Nucleated Red Blood Cell % 0 /100 WBC (0); Platelet Count 163 Thou/mm3 (140-440); RDW Standard Deviation 44.5 fL (35.1-43.9); Red Blood Count 3.46 Miln/mm3 (4.50-5.90); White Blood Count 4.1 Thou/mm3 (3.8-10.6)
[2024-09-01 06:22] LABS: Anion Gap 8 (7-16); BUN/Creatinine Ratio 16 Ratio (12-20); Blood Urea Nitrogen 13 mg/dL (9-23); Calcium 8.4 mg/dL (8.3-10.6); Carbon Dioxide 25.6 mMol/L (20.0-31.0); Chloride 108 mMol/L (98-107); Creatinine (Component) 0.8 mg/dL (0.6-1.3); Estimated Creatinine Clearance 66.5 mL/min (>60); Glucose 130 mg/dL (74-106); Osmolality,Calculated 285 (275-295); Potassium 3.4 mMol/L (3.4-5.1); Sodium 142 mMol/L (136-145); eGFR > 60 See Note
[2024-09-01] MEDS: PANTOPRAZOLE INJ 40 MG VIAL IVP (10:19)
[2024-09-01] MEDS: SUCRALFATE 1 GM TABLET PO ×2 (10:20→21:12)
[2024-09-01] MEDS: Lisinopril 2.5 MG TABLET 5 MG PO (10:20)
--- NOTE | 2024-09-01 11:49 | PD.SURPROG ---
Documentation for date of: 09/01/24 Subjective Subjective Narrative: Patient is seen and examined. He is resting comfortably. He is feeling much better. He is tolerating clear liquids and having multiple bouts of diarrhea Exam Vital Signs Temp Pulse Resp BP Pulse Ox O2 Del Method O2 Flow Rate 97.6 F 61 18 137/88 H 98 Room Air 3 09/01/24 08:00 09/01/24 10:20 09/01/24 08:00 09/01/24 10:20 09/01/24 08:00 09/01/24 08:00 09/01/24 04:00 Constitutional Constitutional: no acute distress Routine Abdominal Exam Comments: Abdomen is soft and much less distended Assessment & Plan Diagnosis (1) Paralytic ileus: Status: Acute Assessment Additional comments: He underwent colonoscopic decompression with excellent results Plan No indications for surgical intervention. Continue to treat C. difficile. May advance diet per Dr. Reynolds's recommendation
--- NOTE | 2024-09-01 14:34 | PD.IMPROG ---
Documentation for date of: 09/01/24 Subjective Subjective Interval history: Patient evaluated No abdominal distention Active bowel sounds Colonic decompression has worked Advance diet as tolerated Exam Vital Signs Temp Pulse Resp BP Pulse Ox O2 Del Method O2 Flow Rate 97.6 F 58 L 16 137/88 H 98 Room Air 3 09/01/24 08:00 09/01/24 13:47 09/01/24 13:47 09/01/24 10:20 09/01/24 08:00 09/01/24 08:00 09/01/24 04:00 Objective Labs 09/01/24 04:37 09/01/24 04:37 Labs: Laboratory Results - last 24 hr 09/01/24 04:37 WBC 4.1 RBC 3.46 L Hgb 11.2 L Hct 32.8 L MCV 95 MCH 32.4 MCHC 34.1 RDW Std Deviation 44.5 H Plt Count 163 Neut % (Auto) 64 Lymph % (Auto) 22 [place] % (Auto) 13 H Eos % (Auto) 1 Baso % (Auto) 0 Neut # (Auto) 2.6 Lymph # (Auto) 0.9 L [place] # (Auto) 0.5 Eos # (Auto) 0.0 Baso # (Auto) 0.0 Immature Gran # (Auto) 0.02 H Absolute Nucleated RBC 0.00 Immature Gran % 1 H Nucleated RBC % 0 Sodium 142 Potassium 3.4 Chloride 108 H Carbon Dioxide 25.6 Anion Gap 8 BUN 13 Creatinine 0.8 Estim Creat Clear Calc 66.5 eGFR > 60 BUN/Creatinine Ratio 16 Glucose 130 H Calculated Osmolality 285 Calcium 8.4 Impressions Impression: # Megacolon status post colonic decompression doing well # C. difficile enterocolitis continue vancomycin Assessment & Plan A&P Narrative # Colonic inertia with stool impaction Rectal tube placed see what the results show Once distention goes down somewhat GoLytely flush Other medical problems include # Essential hypertension # Hyperlipidemia # Peptic ulcer disease # Anemia Thank you very much for the opportunity to participate in the care of this patient Time Spent With Patient Time: Total time spent is greater than 50% in coordination of care (as documented) at patient's floor/unit and/or counseling patient:
--- NOTE | 2024-09-01 16:09 | PC.SS ---
Rounding note: plan is to advance diet and d/c the patient tomorrow if able to tolerate diet.
[2024-09-01] MEDS: POLYETHYLENE GLYCOL 17 GM PACKET PO (16:13)
[2024-09-01] MEDS: DOCUSATE SOD 100 MG CAPSULE PO (16:14)
--- NOTE | 2024-09-01 18:55 | PD.RESPRO ---
Documentation for date of: 09/01/24 Patient evaluated bedside, rectal tube was inserted per GI recommendations, but minimal output in the rectal tube, reached out to Dr. Reynolds who recommended carefully administering GoLytely at 100 cc/h via NG tube, and continue careful observation for abdominal distention, after about 200 cc, noted tense abdomen and worsening abdominal distention, but physical exam negative for rebound tenderness or rigidity, GoLytely was discontinued and patient started on low intermittent suction, Dr. Reynolds was updated with the findings, spoke to Dr. Reynolds about decompression colonoscopy, but in the presence of megacolon, he recommended against it due to high risk of perforation. I ordered a repeat KUB, following GI recommendations and made patient n.p.o. pending C. difficile PCR . General surgery following the patient. Dr Oliveira reevaluated the patient, and told that he would recommend agaisnt any surgery at this point, treat C diff colitis, and GI dr Reynolds to attempt colonoscopic decompression . - Successful fluoroscopic decompression was performed, scope was able to be passed through the hepatic flexure, leading to relief of constipation/obstipation and patient had multiple loose bowel movements following the procedure throughout the day. Feels less bloated and distended, symptomatic relief achieved, continue on antibiotics for C. difficile colitis, started on full liquid diet and advance as tolerated. Patient evaluated and examined at the bedside, plan of care discussed with rest of the team including my attending physician, except as noted. Quresh PGY2 Subjective Subjective Interval history: 09/01: No acute overnight events patient seen and examined at bedside this morning patient is status post colonic decompression yesterday. Patient feels significantly better abdominal distention has significantly improved patient does not complain of any abdominal pain he is having diarrhea (5 episodes so far). Patient has no other complaints at this time Exam Vital Signs Temp Pulse Resp BP Pulse Ox O2 Del Method O2 Flow Rate 98.0 F 65 16 151/66 H 97 Room Air 3 09/01/24 16:00 09/01/24 16:00 09/01/24 16:00 09/01/24 16:00 09/01/24 16:00 09/01/24 16:09/01/24 04:00 Narrative Exam GENERAL: A&Ox3 . Awake, Not in acute distress NEURO: no focal neurological deficits HEENT: Atraumatic, Normocephalic. mucous membranes moist. Eyes open, symmetrical, & clear, NG tube present HEART: Normal Heart Sounds LUNGS: Clear to auscultation with no wheezing or crackles. ABDOMEN: distention resolved no tenderness, bowel sounds heard, no guarding or rebound tenderness SKIN: No Rash or ecchymoses EXTREMITIES: 2+ pitting edema, tenderness, able to move all 4 extremities, pedal pulses palpated Objective Labs 09/02/24 10:05 09/02/24 10:05 Labs: Laboratory Results - last 24 hr 09/01/24 04:37 WBC 4.1 RBC 3.46 L Hgb 11.2 L Hct 32.8 L MCV 95 MCH 32.4 MCHC 34.1 RDW Std Deviation 44.5 H Plt Count 163 Neut % (Auto) 64 Lymph % (Auto) 22 [place] % (Auto) 13 H Eos % (Auto) 1 Baso % (Auto) 0 Neut # (Auto) 2.6 Lymph # (Auto) 0.9 L [place] # (Auto) 0.5 Eos # (Auto) 0.0 Baso # (Auto) 0.0 Immature Gran # (Auto) 0.02 H Absolute Nucleated RBC 0.00 Immature Gran % 1 H Nucleated RBC % 0 Sodium 142 Potassium 3.4 Chloride 108 H Carbon Dioxide 25.6 Anion Gap 8 BUN 13 Creatinine 0.8 Estim Creat Clear Calc 66.5 eGFR > 60 BUN/Creatinine Ratio 16 Glucose 130 H Calculated Osmolality 285 Calcium 8.4 Quality Measures Quality Measures VTE prophylaxis (scd) Advance care planning discussed with:: patient Assessment & Plan Assessment Current Active Medications: Generic Name Dose Route Start Last Admin Trade Name Ilirq PRN Reason Stop Dose Admin Acetaminophen 650 mg 08/31/24 09:46 Acetaminophen 325 Mg Tablet PO 09/28/24 15:47 Q6H PRN PAIN(1-3) OR FEVER > 101 Docusate Sodium 100 mg 09/01/24 15:00 09/01/24 16:14 Docusate Sod 100 Mg Capsule PO 10/01/24 14:59 100 mg QDAY KADIE Administration Protocol Metronidazole 500 mg in 100 mls @ 200 mls/hr 08/29/24 22:43 09/01/24 13:05 Flagyl 500 Mg Iv IV 09/05/24 22:42 200 mls/hr Q8HR KADIE Administration Potassium Chloride/Dextrose/Sod Cl 20 meq in 1,000 mls @ 75 mls/hr 08/31/24 09:30 09/01/24 18:43 Kcl 20 Meq/L In D5-1/2ns IV 09/30/24 09:29 75 mls/hr .[id number] KADIE Administration Lisinopril 5 mg 08/30/24 09:00 09/01/24 10:20 Lisinopril 2.5 Mg Tablet PO 09/29/24 08:59 5 mg QDAY KADIE Administration Morphine Sulfate 4 mg 08/30/24 10:34 08/30/24 17:16 Morphine Sulf Inj 10 Mg/Ml Vial IVP 09/04/24 10:33 4 mg Q6HR PRN Administration PAIN SCALE 7-10 (Severe Ondansetron HCl 4 mg 08/29/24 15:48 Ondansetron Inj 2 Mg/Ml Inj 2 Ml IV 09/28/24 15:47 Q6H PRN NAUSEA OR VOMITING Protocol Pantoprazole Sodium 40 mg 08/29/24 16:15 09/01/24 10:19 Pantoprazole Inj 40 Mg Vial IVP 09/28/24 16:14 40 mg QDAY KADIE Administration Polyethylene Glycol 17 gm 09/01/24 15:00 09/01/24 16:13 Polyethylene Glycol 17 Gm Packet PO 10/01/24 14:59 17 gm QDAY KADIE Administration Sennosides 1 tab 09/01/24 21:00 Senna Tablet PO 10/01/24 20:59 BID KADIE Protocol Sucralfate 1 gm 08/30/24 21:00 09/01/24 10:20 Sucralfate 1 Gm Tablet PO 09/29/24 20:59 1 gm BID KADIE Administration Vancomycin HCl 500 mg 08/31/24 12:00 09/01/24 17:35 Vancomycin Oral Solution 25 Mg/Ml PO 09/07/24 11:59 500 mg QID KADIE Administration Plan Patient is a 82-year-old male with a past medical history of hypertension, hypercholesterolemia, GERD, peptic ulcer disease, anemia, patient is followed by Dr. Horvath and is on aspirin and statin but unsure of the indication, denied having a coronary angiogram. Patient had a recent surgery for hernia repair last month in July, came into the ER complaining of right lower quadrant abdominal pain for the past few days, difficulty passing stools, reported he had 1 bowel movement yesterday, and had some drops of blood after the bowel movement, reported having dark stools over the past 4 days, of note patient is reported taking iron pills for anemia. Denied having any fever, chest pain, shortness of breath. Denied having any diarrhea, physical exam unremarkable for abdominal rigidity or rebound tenderness. CT abdomen pelvis shows severely distended colon with toxic megacolon appearance, as well as diffuse prominent rectal wall thickening, proctitis versus rectal tumor possible. ER consulted tech ed/woodshop teacher Dr. Reynolds who recommended rectal tube and getting general surgery on board. Reached out to general surgeon Dr Oliveira who said he will Evaluate the patient and give recommendations. #Toxic megacolon- resolved # C. difficile positive CT abdomen pelvis shows severely distended colon which extend beneath both hemidiaphragms, 40mm right liver lobe cyst, absent gallbladder, toxic megacolon appearance, as well as proctitis versus rectal tumor like findings including diffuse rectal wall thickening. Bright red bleeding per rectum reported, possible hemorrhoids, patient reported negative colonoscopy 1 year ago, reports dark stools but also takes iron supplements ? Dr. Reynolds was consulted by ER provider who recommended adding a rectal tube ? General surgery, Dr. Oliveira was consulted due to concern for toxic megacolon ? Keep patient n.p.o. ? IV fluids ? Protonix IV daily -P.o. vancomycin started 08/31- -IV metronidazole started 08/29- ? C. difficile PCR positive -Patient may benefit from colonoscopy to rule out rectal cancer -Patient is status post colonic decompression -Will continue to monitor patient's diarrhea # History of peptic ulcer disease # History of hypertension # History of hypercholesterolemia ? Protonix IV daily -Sucralfate p.o. twice daily ? holding aspirin due possibility of surgical intervention. ? continue lisinopril 5 mg Disposition: Patient is status post colonic decompression and C. difficile positive DVT prophylaxis: SCD, GI prophylaxis: protonix Diet: Regular diet Lines: PIV CODE STATUS: Full Assessment and plan discussed with my senior resident Dr. Worley & attending physician Dr. Winnie Fernandez (PGY-1)- Internal medicine resident Attending Provider Attestation/Addendum Alla Espinoza, , attest that I was physically present for the xiao portions of the service and evaluated the patient with the resident and I reviewed and discussed the case with the resident and agree with the resident's findings and plans of care as documented above Patient seen and evaluated this AM. No acute events overnight. Patient underwent colonoscopy last night for decompression of colon. He states he is feeling much better today and tolerating CLD. Patient has had 5 bouts of diarrhea. Will continue to monitor BMs. Abdomen is soft, nontender and nondistended. Will continue with current regimen
[2024-09-02] VITALS (9 sets, daily range): BP systolic 138–167; BP diastolic 66–79; PULSE 60–75; RESP 16–98; TEMP 36.1–36.7; O2SAT 96–98
[2024-09-02] MEDS: metroNIDAZOLE/NS 500 MG IVPB 500 MG/100 ML BAG 200 MG IV ×3 (05:24→21:11)
[2024-09-02] MEDS: VANCOMYCIN 25 MG/ML 500 MG PO ×4 (06:28→21:12)
[2024-09-02] MEDS: DOCUSATE SOD 100 MG CAPSULE PO (09:17)
[2024-09-02] MEDS: Lisinopril 2.5 MG TABLET 5 MG PO (09:17)
[2024-09-02] MEDS: PANTOPRAZOLE INJ 40 MG VIAL IVP (09:18)
[2024-09-02 10:57] LABS: Anion Gap 9 (7-16); BUN/Creatinine Ratio 11 Ratio (12-20); Blood Urea Nitrogen 8 mg/dL (9-23); Carbon Dioxide 24.4 mMol/L (20.0-31.0); Chloride 107 mMol/L (98-107); Creatinine (Component) 0.7 mg/dL (0.6-1.3); Estimated Creatinine Clearance 74.5 mL/min (>60); Glucose 111 mg/dL (74-106); Osmolality,Calculated 278 (275-295); Potassium 2.8 mMol/L (3.4-5.1); Sodium 140 mMol/L (136-145); eGFR > 60 See Note
[2024-09-02 11:00] LABS: Basophils % (Auto) 1 % (0-2.5); Eosinophils # (Auto) 0.2 Thou/mm3 (0.0-0.5); Eosinophils % (Auto) 4 % (0-10); Hematocrit 34.7 % (41.0-53.0); Immature Granulocytes % (Auto) 2 % (0-0); Immature Granulocytes Auto 0.08 Thou/mm3 (0.00-0.00); Lymphocytes % (Auto) 20 % (10-50); Mean Corpuscular HGB Conc 34.6 g/dl (31.0-37.0); Mean Corpuscular Hemoglobin 32.4 pg (25.0-35.0); Mean Corpuscular Volume 94 fL (80-100); Monocytes # (Auto) 0.6 Thou/mm3 (0.0-0.8); Monocytes % (Auto) 11 % (0-12); Neutrophils # (Auto) 3.2 Thou/mm3 (1.8-7.7); Neutrophils % (Auto) 63 % (37-80); Nucleated Red Blood Cell % 0 /100 WBC (0); Platelet Count 177 Thou/mm3 (140-440); RDW Standard Deviation 45.2 fL (35.1-43.9); White Blood Count 5.1 Thou/mm3 (3.8-10.6)
[2024-09-02] MEDS: POTASSIUM CHLORIDE 10% 20 MEQ/15 ML UDC 40 MEQ PO (13:09)
--- NOTE | 2024-09-02 15:33 | ESPR_ITS ---
Documentation for date of: 09/02/24 Subjective Subjective Interval history: Abdominal distention much less Passing flatus Exam Vital Signs Temp Pulse Resp BP Pulse Ox O2 Del Method O2 Flow Rate 97.4 F 62 16 145/66 H 97 Room Air 3 09/02/24 08:00 09/02/24 09:17 09/02/24 08:00 09/02/24 09:17 09/02/24 08:00 09/02/24 08:00 09/01/24 04:00 Constitutional Comments: Alert oriented Routine Abdominal Exam Comments: Soft nontender positive bowel sounds Objective Labs 09/02/24 10:05 09/02/24 10:05 Labs: Laboratory Results - last 24 hr 09/02/24 10:05 WBC 5.1 RBC 3.70 L Hgb 12.0 L Hct 34.7 L MCV 94 MCH 32.4 MCHC 34.6 RDW Std Deviation 45.2 H Plt Count 177 Neut % (Auto) 63 Lymph % (Auto) 20 [place] % (Auto) 11 Eos % (Auto) 4 Baso % (Auto) 1 Neut # (Auto) 3.2 Lymph # (Auto) 1.0 [place] # (Auto) 0.6 Eos # (Auto) 0.2 Baso # (Auto) 0.0 Immature Gran # (Auto) 0.08 H Absolute Nucleated RBC 0.00 Immature Gran % 2 H Nucleated RBC % 0 Sodium 140 Potassium 2.8 L D Chloride 107 Carbon Dioxide 24.4 Anion Gap 9 BUN 8 L Creatinine 0.7 Estim Creat Clear Calc 74.5 eGFR > 60 BUN/Creatinine Ratio 11 L Glucose 111 H Calculated Osmolality 278 Calcium 8.0 L Impressions Impression: # Megacolon status post colonic decompression # C. difficile enterocolitis continue p.o. vancomycin Advance diet as tolerated Assessment & Plan A&P Narrative # Colonic inertia with stool impaction Rectal tube placed see what the results show Once distention goes down somewhat GoLytely flush Other medical problems include # Essential hypertension # Hyperlipidemia # Peptic ulcer disease # Anemia Thank you very much for the opportunity to participate in the care of this patient Time Spent With Patient Time: Total time spent is greater than 50% in coordination of care (as documented) at patient's floor/unit and/or counseling patient:
[2024-09-02] MEDS: POTASSIUM CHLORIDE 10% 20 MEQ/15 ML UDC PO (16:47)
--- NOTE | 2024-09-02 19:03 | ESPR_ITS ---
Documentation for date of: 09/02/24 Subjective Subjective Interval history: Overnight events, labs reviewed. The patient examined this a.m. at bedside. The patient has no active complaints. Able to tolerate full iquid diet, spoke to gonzales Dorman, will continue IV metronidazole and PO Vancomycin for now, as fulminant c diff colitis improves, can be discharged on PO vancomycin for 10 days. Exam Vital Signs Temp Pulse Resp BP Pulse Ox O2 Del Method O2 Flow Rate 98.1 F 64 18 157/74 H 98 Room Air 3 09/02/24 16:00 09/02/24 16:39 09/02/24 16:39 09/02/24 16:00 09/02/24 16:00 09/02/24 16:00 09/01/24 04:00 Narrative Exam GENERAL: A&Ox3 . Awake, Not in acute distress NEURO: no focal neurological deficits HEENT: Atraumatic, Normocephalic. mucous membranes moist. Eyes open, symmetrical, & clear, NG tube present HEART: Normal Heart Sounds LUNGS: Clear to auscultation with no wheezing or crackles. ABDOMEN: distention resolved no tenderness, bowel sounds heard, no guarding or rebound tenderness SKIN: No Rash or ecchymoses EXTREMITIES: 2+ pitting edema, tenderness, able to move all 4 extremities, pedal pulses palpated Objective Labs 09/03/24 04:40 09/03/24 04:40 Labs: Laboratory Results - last 24 hr 09/02/24 10:05 WBC 5.1 RBC 3.70 L Hgb 12.0 L Hct 34.7 L MCV 94 MCH 32.4 MCHC 34.6 RDW Std Deviation 45.2 H Plt Count 177 Neut % (Auto) 63 Lymph % (Auto) 20 [place] % (Auto) 11 Eos % (Auto) 4 Baso % (Auto) 1 Neut # (Auto) 3.2 Lymph # (Auto) 1.0 [place] # (Auto) 0.6 Eos # (Auto) 0.2 Baso # (Auto) 0.0 Immature Gran # (Auto) 0.08 H Absolute Nucleated RBC 0.00 Immature Gran % 2 H Nucleated RBC % 0 Sodium 140 Potassium 2.8 L D Chloride 107 Carbon Dioxide 24.4 Anion Gap 9 BUN 8 L Creatinine 0.7 Estim Creat Clear Calc 74.5 eGFR > 60 BUN/Creatinine Ratio 11 L Glucose 111 H Calculated Osmolality 278 Calcium 8.0 L Quality Measures Quality Measures VTE prophylaxis (scd) Advance care planning discussed with:: patient Assessment & Plan Assessment Current Active Medications: Generic Name Dose Route Start Last Admin Trade Name Freq PRN Reason Stop Dose Admin Acetaminophen 650 mg 08/31/24 09:46 Acetaminophen 325 Mg Tablet PO 09/28/24 15:47 Q6H PRN PAIN(1-3) OR FEVER > 101 Docusate Sodium 100 mg 09/01/24 15:00 09/02/24 09:17 Docusate Sod 100 Mg Capsule PO 10/01/24 14:59 100 mg QDAY KADIE Administration Protocol Metronidazole 500 mg in 100 mls @ 200 mls/hr 08/29/24 22:43 09/02/24 13:09 Flagyl 500 Mg Iv IV 09/05/24 22:42 200 mls/hr Q8HR KADIE Administration Lisinopril 5 mg 08/30/24 09:00 09/02/24 09:17 Lisinopril 2.5 Mg Tablet PO 09/29/24 08:59 5 mg QDAY KADIE Administration Morphine Sulfate 4 mg 08/30/24 10:34 08/30/24 17:16 Morphine Sulf Inj 10 Mg/Ml Vial IVP 09/04/24 10:33 4 mg Q6HR PRN Administration PAIN SCALE 7-10 (Severe Ondansetron HCl 4 mg 08/29/24 15:48 Ondansetron Inj 2 Mg/Ml Inj 2 Ml IV 09/28/24 15:47 Q6H PRN NAUSEA OR VOMITING Protocol Pantoprazole Sodium 40 mg 08/29/24 16:15 09/02/24 09:18 Pantoprazole Inj 40 Mg Vial IVP 09/28/24 16:14 40 mg QDAY KADIE Administration Vancomycin HCl 500 mg 08/31/24 12:00 09/02/24 16:48 Vancomycin Oral Solution 25 Mg/Ml PO 09/07/24 11:59 500 mg QID KADIE Administration Plan Patient is a 82-year-old male with a past medical history of hypertension, hypercholesterolemia, GERD, peptic ulcer disease, anemia, patient is followed by Dr. Horvath and is on aspirin and statin but unsure of the indication, denied having a coronary angiogram. Patient had a recent surgery for hernia repair last month in July, came into the ER complaining of right lower quadrant abdominal pain for the past few days, difficulty passing stools, reported he had 1 bowel movement yesterday, and had some drops of blood after the bowel movement, reported having dark stools over the past 4 days, of note patient is reported taking iron pills for anemia. Denied having any fever, chest pain, shortness of breath. Denied having any diarrhea, physical exam unremarkable for abdominal rigidity or rebound tenderness. CT abdomen pelvis shows severely distended colon with toxic megacolon appearance, as well as diffuse prominent rectal wall thickening, proctitis versus rectal tumor possible. ER consulted customer counter associate Dr. Reynolds who recommended rectal tube and getting general surgery on board. Reached out to general surgeon Dr Oliveira who said he will Evaluate the patient and give recommendations. #Toxic megacolon- resolved # C. difficile positive CT abdomen pelvis shows severely distended colon which extend beneath both hemidiaphragms, 40mm right liver lobe cyst, absent gallbladder, toxic megacolon appearance, as well as proctitis versus rectal tumor like findings including diffuse rectal wall thickening. Bright red bleeding per rectum reported, possible hemorrhoids, patient reported negative colonoscopy 1 year ago, reports dark stools but also takes iron supplements ? Dr. Reynolds was consulted by ER provider who recommended adding a rectal tube ? General surgery, Dr. Oliveira was consulted due to concern for toxic megacolon ? Keep patient n.p.o. ? IV fluids ? Protonix IV daily -P.o. vancomycin started 08/31- -IV metronidazole started 08/29- ? C. difficile PCR positive -Patient may benefit from colonoscopy to rule out rectal cancer -Patient is status post colonic decompression -Will continue to monitor patient's diarrhea # History of peptic ulcer disease # History of hypertension # History of hypercholesterolemia ? Protonix IV daily -Sucralfate p.o. twice daily ? holding aspirin due possibility of surgical intervention. ? continue lisinopril 5 mg Disposition: Patient is status post colonic decompression and C. difficile positive DVT prophylaxis: SCD, GI prophylaxis: protonix Diet: Regular diet Lines: PIV CODE STATUS: Full The plan of care was discussed with my attending physician DO Aris Ashley MD PGY2 This document was completed utilizing speech recognition software. Grammatical errors, random word insertions, pronoun errors, and incomplete sentences are an occasional consequence of this system due to software limitations, ambient noise, and hardware issues. Any formal questions or concerns about the content, text or information contained within the body of this dictation should be directly addressed to the provider for clarification. Attending Provider Attestation/Addendum I, Alla Zhou DO, attest that I was physically present for the xiao portions of the service and evaluated the patient with the resident and I reviewed and discussed the case with the resident and agree with the resident's findings and plans of care as documented above Patient seen and evaluated this AM. Patient states that he is doing well and tolerating full liquid. Case discussed with GI, OK to advance diet. If patient continues to improve in AM, plan for discharge home. Patient states he only had 1 episode of diarrhea overnight.
[2024-09-03] VITALS (7 sets, daily range): BP systolic 163–169; BP diastolic 77–83; PULSE 66–78; RESP 16–97; TEMP 35.8–36.7; O2SAT 94–98
[2024-09-03] MEDS: metroNIDAZOLE/NS 500 MG IVPB 500 MG/100 ML BAG 200 MG IV (05:38)
[2024-09-03 05:42] LABS: Basophils % (Auto) 1 % (0-2.5); Eosinophils # (Auto) 0.4 Thou/mm3 (0.0-0.5); Eosinophils % (Auto) 8 % (0-10); Hematocrit 32.4 % (41.0-53.0); Hemoglobin 11.3 g/dL (13.5-16.0); Immature Granulocytes % (Auto) 2 % (0-0); Immature Granulocytes Auto 0.08 Thou/mm3 (0.00-0.00); Lymphocytes # (Auto) 1.2 Thou/mm3 (1.0-4.8); Lymphocytes % (Auto) 24 % (10-50); Mean Corpuscular HGB Conc 34.9 g/dl (31.0-37.0); Mean Corpuscular Hemoglobin 32.7 pg (25.0-35.0); Mean Corpuscular Volume 94 fL (80-100); Monocytes # (Auto) 0.5 Thou/mm3 (0.0-0.8); Monocytes % (Auto) 11 % (0-12); Neutrophils # (Auto) 2.7 Thou/mm3 (1.8-7.7); Neutrophils % (Auto) 55 % (37-80); Nucleated Red Blood Cell % 0 /100 WBC (0); Platelet Count 190 Thou/mm3 (140-440); RDW Standard Deviation 45.1 fL (35.1-43.9); Red Blood Count 3.46 Miln/mm3 (4.50-5.90); White Blood Count 4.9 Thou/mm3 (3.8-10.6)
[2024-09-03 06:10] LABS: Alanine Aminotransferase 13 U/L (10-49); Albumin, Serum 3.1 gm/dL (3.4-4.8); Albumin/Globulin Ratio 1.6 (1.2-2.2); Alkaline Phosphatase 48 U/L (46-116); Anion Gap 6 (7-16); Aspartate Amino Transferase 19 U/L (0-34); BUN/Creatinine Ratio 8 Ratio (12-20); Bilirubin,Total 0.4 mg/dL (0.3-1.2); Blood Urea Nitrogen 6 mg/dL (9-23); Calcium 8.3 mg/dL (8.3-10.6); Chloride 109 mMol/L (98-107); Creatinine (Component) 0.8 mg/dL (0.6-1.3); Estimated Creatinine Clearance 65.2 mL/min (>60); Glucose 99 mg/dL (74-106); Osmolality,Calculated 280 (275-295); Potassium 3.3 mMol/L (3.4-5.1); Sodium 142 mMol/L (136-145); Total Protein 5.1 gm/dL (5.7-8.2); eGFR > 60 See Note
[2024-09-03] MEDS: VANCOMYCIN 25 MG/ML 500 MG PO ×2 (06:28→11:53)
[2024-09-03] MEDS: DOCUSATE SOD 100 MG CAPSULE PO (08:59)
[2024-09-03] MEDS: Lisinopril 2.5 MG TABLET 5 MG PO ×2 (08:59→11:52)
[2024-09-03] MEDS: POTASSIUM CHLORIDE 20 mEq TABCR 40 MEQ PO (08:59)
[2024-09-03] MEDS: PANTOPRAZOLE INJ 40 MG VIAL IVP (08:59)
--- NOTE | 2024-09-03 12:24 | PD.IMPROG ---
Documentation for date of: 09/03/24 Subjective Subjective Interval history: Diet advanced Abdomen less distended and active bowel sounds Exam Vital Signs Temp Pulse Resp BP Pulse Ox O2 Del Method O2 Flow Rate 96.5 F L 66 18 167/83 H 98 Room Air 3 09/03/24 08:00 09/03/24 11:52 09/03/24 08:15 09/03/24 11:52 09/03/24 08:00 09/03/24 08:00 09/01/24 04:00 Objective Labs 09/03/24 04:40 09/03/24 04:40 Labs: Laboratory Results - last 24 hr 09/03/24 04:40 WBC 4.9 RBC 3.46 L Hgb 11.3 L Hct 32.4 L MCV 94 MCH 32.7 MCHC 34.9 RDW Std Deviation 45.1 H Plt Count 190 Neut % (Auto) 55 Lymph % (Auto) 24 [place] % (Auto) 11 Eos % (Auto) 8 Baso % (Auto) 1 Neut # (Auto) 2.7 Lymph # (Auto) 1.2 [place] # (Auto) 0.5 Eos # (Auto) 0.4 Baso # (Auto) 0.0 Immature Gran # (Auto) 0.08 H Absolute Nucleated RBC 0.00 Immature Gran % 2 H Nucleated RBC % 0 Sodium 142 Potassium 3.3 L D Chloride 109 H Carbon Dioxide 27.0 Anion Gap 6 L BUN 6 L Creatinine 0.8 Estim Creat Clear Calc 65.2 eGFR > 60 BUN/Creatinine Ratio 8 L Glucose 99 Calculated Osmolality 280 Calcium 8.3 Corrected Calcium 9.0 Total Bilirubin 0.4 AST 19 ALT 13 Alkaline Phosphatase 48 Total Protein 5.1 L Albumin 3.1 L Globulin 2.0 L Albumin/Globulin Ratio 1.6 Impressions Impression: # Megacolon requiring endoscopic decompression via colonoscopy doing well post decompression # C. difficile enterocolitis Continue current management From a GI viewpoint patient can be discharged home on oral vancomycin for total of 10 days Assessment & Plan A&P Narrative # Colonic inertia with stool impaction Rectal tube placed see what the results show Once distention goes down somewhat GoLytely flush Other medical problems include # Essential hypertension # Hyperlipidemia # Peptic ulcer disease # Anemia Thank you very much for the opportunity to participate in the care of this patient Time Spent With Patient Time: Total time spent is greater than 50% in coordination of care (as documented) at patient's floor/unit and/or counseling patient:
--- NOTE | 2024-09-03 17:08 | ESDS_ITS ---
<Statement entered by Alla Zhou DO - 09/04/24 07:52> I, Alla Zhou DO, attest that I was physically present for the xiao portions of the service and evaluated the patient with the resident and I reviewed and discussed the case with the resident and agree with the resident's findings and plans of care as documented above Planned Discharge Date 09/03/24 DS: Providers Provider Date of admission: 08/29/24 15:48 Primary care physician: Capo Barone PA-C Admitting Provider: Travon Carlson MD Attending Provider on Admission: Alla Zhou DO Consults: 08/29/24 14:29 Consult to Gastroenterology Stat Comment: Consulting Provider: Octavia Reynolds 08/29/24 15:48 Referral Physical Therapy Stat Comment: Physician Instructions: 08/29/24 15:49 Consult to General Surgery Stat Comment: toxic megacolon Consulting Provider: Diane Oliveira Attending Provider on DC: Ab Fernandez MD Discharging Provider: Ab Fernandez MD DS: Diagnosis Problem List Completed Was Problem List Reviewed/Reconciled?: Yes Hospital Course Hospital Course Hospital course: Mr. Paulino is a 82-year-old male with a past medical history of hypertension, hypercholesterolemia, GERD, peptic ulcer disease, anemia, patient is followed by Dr. Horvath and is on aspirin and statin but unsure of the indication, denied having a coronary angiogram. Patient had a recent surgery for hernia repair last month in July, came [facility] ED complaining of right lower quadrant abdominal pain for the past few days, difficulty passing stools. On physical exam unremarkable for abdominal rigidity or rebound tenderness. CT abdomen pelvis shows severely distended colon with toxic megacolon appearance, as well as diffuse prominent rectal wall thickening, hydraulic lift operator Dr. Reynolds and rectal tube was placed. General surgery was consulted for their recommendations which recommended against surgery as this time because of risk of perforation and agreed with the rectal tube. Over the course of hospitalization patient continued to become more distended with increasing discomfort. Patient was C. difficile PCR positive and patient underwent Successful fluoroscopic decompression, scope was able to be passed through the hepatic flexure, leading to relief of constipation/obstipation and patient had multiple loose bowel movements following the procedure throughout the day. [place] less bloated and distended, symptomatic relief achieved, continue on antibiotics for C. difficile colitis, and was able to tolerate oral diet. Patient is now hemodynamically stable with resolution of his symptoms he is ready to be discharged home. Images Abdominal/pelvis CT- Severely distended colon, toxic megacolon appearance, Diffuse prominent rectal wall thickening Abdominal x-ray- Severe colonic ileus with large amounts of stool throughout the entire colon, Severe colonic ileus Discharge Recommendations Patient is recommended to follow-up with PCP within 1 week to discuss recent hospitalization Patient will be sent home with a 1 week course of vancomycin to complete 10 days of total antibiotic therapy with oral vancomycin for the management of C. difficile infection Patient is recommended to follow-up with PCP in regards to his antihypertensive medications due to the fact the patient remained hypertensive during hospitalization and lisinopril was unable to control the patient's blood pressure down to 120/80. Se recomienda que el paciente mack un seguimiento con [facility] Doctor de cuidados primarios dentro de 1 semana para analizar [facility] hospitalizaci?n reciente. El paciente ser? enviado a casa con un tratamiento de 1 semana de vancomicina para completar 10 d?as de terapia antibi?evelin total con vancomicina oral para el tratamiento de la infecci?n por C. difficile. Hospitalization Diagnosis #Toxic megacolon- resolved # C. difficile positive # History of peptic ulcer disease # History of hypertension # History of hypercholesterolemia Assessment and plan discussed with my attending physician Dr. Winnie Fernandez (PGY-1)- Internal medicine resident Time Spent with Patient Time attestation: Total time spent providing and/or coordinating discharge services: greater than 30 min Exam Vital Signs Temp Pulse Resp BP Pulse Ox O2 Del Method O2 Flow Rate 97.0 F 78 16 167/83 H 94 L Room Air 3 09/03/24 12:09/03/24 12:09/03/24 12:09/03/24 12:09/03/24 12:09/03/24 12:09/01/24 04:00 Narrative Exam GENERAL: A&Ox3 . Awake, Not in acute distress NEURO: no focal neurological deficits HEENT: Atraumatic, Normocephalic. mucous membranes moist. Eyes open, symmetrical, & clear, NG tube present HEART: Normal Heart Sounds LUNGS: Clear to auscultation with no wheezing or crackles. ABDOMEN: No distention or tenderness, bowel sounds heard, no guarding or rebound tenderness SKIN: No Rash or ecchymoses EXTREMITIES: 2+ pitting edema, tenderness, able to move all 4 extremities, pedal pulses palpated Discharge Plan Plan Patient Disposition: HOME (Self Care) Patient condition on transfer: Stable Care Plan Goals: Patient is recommended to follow-up with PCP within 1 week to discuss recent hospitalization Patient will be sent home with a 1 week course of vancomycin to complete 10 days of total antibiotic therapy with oral vancomycin for the management of C. difficile infection Patient is recommended to follow-up with PCP in regards to his antihypertensive medications due to the fact the patient remained hypertensive during hospitalization and lisinopril was unable to control the patient's blood pressure down to 120/80. Se recomienda que el paciente mack un seguimiento con [facility] Doctor de cuidados primarios dentro de 1 semana para analizar [facility] hospitalizaci?n reciente. El paciente ser? enviado a casa con un tratamiento de 1 semana de vancomicina para completar 10 d?as de terapia antibi?evelin total con vancomicina oral para el tratamiento de la infecci?n por C. difficile. Prescriptions/Referrals Prescriptions/Med Rec: New vancomycin 125 mg capsule 125 mg PO QID Qty: 28 0RF Continued sucralfate 1 gram tablet 1 g PO BID ferrous sulfate [FeroSul] 325 mg (65 mg iron) tablet 325 mg PO DAILY Patient Comments: TAKE 1 TABLET BY MOUTH EVERY DAY lisinopril 5 mg Tablet 5 mg PO QDAY aspirin 325 mg Tablet 325 mg PO QDAY Hold Instructions: Resume on 08/02/24. docusate sodium [Colace] 100 mg capsule 100 mg PO BID Qty: 60 0RF hydrocodone-acetaminophen 5-325 mg tablet 1 tab PO Q6H MDD 4 PRN (Reason: pain (scale score 7-10)) Qty: 15 0RF Discontinued ibuprofen 600 mg tablet 600 mg PO Q8H PRN (Reason: pain (scale score 4-6)) Qty: 15 0RF Referrals: Capo Barone PA-C [Primary Care Provider] - Octavia Reynolds MD [Physician] - Patient/Caregiver Discharge Instructions Other Discharge Activity Instructions:: Patient is recommended to follow-up with Primar Care Provider within 1 week to discuss recent hospitalization Patient will be sent home with a 1 week course of vancomycin to complete 10 days of total antibiotic therapy with oral vancomycin for the management of C. difficile infection Se recomienda que el paciente mack un seguimiento con [facility] Doctor de cuidados primarios dentro de 1 semana para analizar [facility] hospitalizaci?n reciente. El paciente ser? enviado a casa con un tratamiento de 1 semana de vancomicina para completar 10 d?as de terapia antibi?evelin total con vancomicina oral para el tratamiento de la infecci?n por C. difficile. Education Materials: C diff, Colonoscopy Print Language: Welsh Stand Alone Forms: Beth Award Info., Patient Portal Info Letter Discharge Order Discharge Orders: Discharge (Routine); Ordered 09/03/24 Ordered By: Renan Gonzalez Quality Discharge Quality Measures none
[2024-09-06 06:23] LABS: CA 19-9 Antigen* 17 U/mL (<34)
== END 2024-09-03 14:50 | disposition home or self-care (01) | DRG 373 ==
LOC: SERX 14:13 → SERHOLD 16:21 → S3NX 08-30 07:16
PROVIDERS: Nurse Practitioner Primary Care; Specialist; Student in an Organized Health Care Education/Training Program; Admitting Provider Student in an Organized Health Care Education/Training Program; Emergency Provider Emergency Medicine; PCP Family Medicine; Visit Provider Internal Medicine
PROC: 0DJD8ZZ Inspection of Lower Intestinal Tract, Via Natural or Artificial Opening Endoscopic (ICD-10-PCS; CPT 45378; principal; 2024-08-31 21:30)
DX: A04.72 Enterocolitis due to Clostridium difficile, not specified as recurrent (principal); K64.9 Unspecified hemorrhoids; K56.41 Fecal impaction; I10 Essential (primary) hypertension; D64.9 Anemia, unspecified; K76.89 Other specified diseases of liver; D72.819 Decreased white blood cell count, unspecified; E87.6 Hypokalemia; E78.00 Pure hypercholesterolemia, unspecified; K21.9 Gastro-esophageal reflux disease without esophagitis; I25.10 Atherosclerotic heart disease of native coronary artery without angina pectoris; Z85.46 Personal history of malignant neoplasm of prostate; Z87.11 Personal history of peptic ulcer disease; Z90.79 Acquired absence of other genital organ(s); Z95.5 Presence of coronary angioplasty implant and graft; Z79.899 Other long term (current) drug therapy
CPT/HCPCS: 36415; 74018; 74176; 80048; 80053; 80061; 80076; 81001; 82378; 83540; 83550; 83690; 83735; 84100; 84443; 85025; 85610; 86301; 86304; 87493; 96374; 97162; 99285; A4217; J0696; J2250; J2270; J2470; J3010; J3480; J3490; J7030; A9270; J1836

== ENCOUNTER → 2024-11-08 | Outpatient (CLI) | payer MEDICARE, MEDICAID, SELFPAY ==
[2024-11-08 12:07] LABS: Prostate Specific Antigen < 0.10 ng/mL (0-4.00)
== END | disposition home or self-care (01) ==
PROVIDERS: PCP Family Medicine; Referring Provider Radiology Therapeutic Radiology; Visit Provider Radiology Therapeutic Radiology
DX: C61 Malignant neoplasm of prostate (principal)
CPT/HCPCS: 36415; 84153

== ENCOUNTER 2024-11-16 08:46 | Outpatient (RCR) | payer MEDICARE, MEDICAID, SELFPAY ==
--- NOTE | 2024-11-21 17:06 | CTCFLWUP_ITS ---
[facility] [address] [place], [place] [address] FOLLOW-UP NOTE Date: 11/16/2024 MR#: [id number] Name: SAM CARR : 1940 Dx: C61 Malignant neoplasm of prostate Identification. Patient with prostate CA status post robotic assisted radical prostatectomy [facility] 06/22/2019. High risk features along with PSA noted to be rising and patient received postoperation therapy 6840 centigrade completed 04/15/2022. Received 2 Lupron injections last 1 on 05/27/2022 and had some cardiac issues and decided to stop Lupron injections after only 2 injections. Most recent PSA November 20, 2024 was less than 0.10 Doing well overall with no significant pelvic symptoms. Told patient to come back in 6 months with another PSA. Electronically signed by: Bib Rudolph M.D. 11/21/2024 5:04 PM
== END 2024-12-13 23:59 | disposition home or self-care (01) ==
LOC: SCTC 08:46
PROVIDERS: PCP Family Medicine; Referring Provider Family Medicine; Visit Provider Radiology Therapeutic Radiology
DX: C61 Malignant neoplasm of prostate (principal); Z90.79 Acquired absence of other genital organ(s)
CPT/HCPCS: 99213; G0463

== ENCOUNTER → 2024-11-20 | Outpatient (CLI) | payer MEDICARE, MEDICAID, SELFPAY ==
[2024-11-20 11:00] LABS: Prostate Specific Antigen < 0.10 ng/mL (0-4.00)
== END | disposition home or self-care (01) ==
LOC: COPL 09:02
PROVIDERS: PCP Family Medicine; Referring Provider Urology; Visit Provider Urology
DX: C61 Malignant neoplasm of prostate (principal)
CPT/HCPCS: 36415; 84153

== ENCOUNTER → 2024-11-24 | Outpatient (BNVA) | payer MEDICARE, MEDICAID, SELFPAY | END | disposition home or self-care (01) | PROVIDERS: PCP Family Medicine; Referring Provider Family Medicine; Visit Provider Urology | DX: C61 Malignant neoplasm of prostate (principal); Z92.3 Personal history of irradiation; N39.46 Mixed incontinence; I10 Essential (primary) hypertension; I25.10 Atherosclerotic heart disease of native coronary artery without angina pectoris; E78.00 Pure hypercholesterolemia, unspecified; K21.9 Gastro-esophageal reflux disease without esophagitis | CPT/HCPCS: 81003; 99212; G0463 ==

== ENCOUNTER 2024-12-31 09:52 | Emergency (ER) | payer MEDICARE, MEDICAID, SELFPAY | END 2024-12-31 10:18 | disposition home or self-care (01) | PROVIDERS: Emergency Provider Emergency Medicine; PCP Family Medicine; Referring Provider Emergency Medicine | DX: L02.415 Cutaneous abscess of right lower limb (principal) | CPT/HCPCS: 99281 ==

== ENCOUNTER → 2025-05-10 | Outpatient (CLI) | payer MEDICARE, MEDICAID, SELFPAY ==
[2025-05-10 12:18] LABS: Prostate Specific Antigen < 0.10 ng/mL (0-4.00)
== END | disposition home or self-care (01) ==
LOC: SCTO 10:43
PROVIDERS: PCP Family Medicine; Referring Provider Radiology Therapeutic Radiology; Visit Provider Radiology Therapeutic Radiology
DX: C61 Malignant neoplasm of prostate (principal)
CPT/HCPCS: 36415; 84153

== ENCOUNTER → 2025-05-21 | Outpatient (CLI) | payer MEDICARE, MEDICAID, SELFPAY ==
[2025-05-21 10:33] LABS: Prostate Specific Antigen < 0.10 ng/mL (0-4.00)
== END | disposition home or self-care (01) ==
LOC: COPL 09:40
PROVIDERS: PCP Family Medicine; Referring Provider Urology; Visit Provider Urology
DX: C61 Malignant neoplasm of prostate (principal)
CPT/HCPCS: 36415; 84153

== ENCOUNTER → 2025-05-25 | Outpatient (BNVA) | payer MEDICARE, MEDICAID, SELFPAY | END | disposition home or self-care (01) | PROVIDERS: PCP Family Medicine; Referring Provider Family Medicine; Visit Provider Urology | DX: C61 Malignant neoplasm of prostate (principal); N39.46 Mixed incontinence; I10 Essential (primary) hypertension; I25.10 Atherosclerotic heart disease of native coronary artery without angina pectoris | CPT/HCPCS: 81003; 99213; G0463 ==